=== PATIENT | female | born 1965 | race African-American/Black ===

== ENCOUNTER 2025-05-27 14:03 | Emergency (ER) | payer OTHER, SELFPAY ==
[2025-05-27] VITALS (13 sets, daily range): BP systolic 120–157; BP diastolic 84–103; PULSE 55–78; RESP 12–18; TEMP 36.6; O2SAT 95–100
--- NOTE | ~2025-05-27 | XR_ITS ---
XR chest 1V portable Ordering provider: Lilly Fenton PA-C History: 60 years Female with . shortness of breath . Comparison: None. FINDINGS: MEDIASTINUM: The cardiac silhouette is not enlarged. LUNGS: No infiltrates, effusions or pneumothorax. Granuloma seen in the left upper lobe area. OTHER: No free air under the diaphragm. IMPRESSION: No acute cardiopulmonary pathology. Reviewed, dictated and finalized at location A.
--- NOTE | ~2025-05-27 | CT_ITS ---
CLINICAL INDICATION: Left lower quadrant abdominal pain COMPARISON: 12/14/2024. TECHNIQUE: Multiple contiguous axial images of the abdomen and pelvis were performed following the ad ministration of with 100 mL Omnipaque-350 intravenous contrast The dose-length product (DLP) was 451.60 mGy-cm. Automated exposure control and iterative reconstruction technique were employed. FINDINGS/OBSERVATIONS: Visualized lower thorax: IMPRESSION: Small bilateral pleural effusions, with adjacent compressive atelectasis, unchanged from prior. The heart is of normal size, without pericardial effusion. Small hiatal hernia is present. Liver: The liver demonstrates homogeneous enhancement and is not enlarged. Gallbladder and biliary system: The gallbladder is only minimally distended, and otherwise unremarkable. Pancreas: The pancreas enhances homogeneously without ductal dilatation. Spleen: Punctate calcifications identified within the splenic parenchyma, suggesting prior granulomat ous disease. The remainder of the spleen otherwise enhances homogeneously and is not enlarged. Kidneys: The bilateral kidneys enhance symmetrically without hydronephrosis or renal calculi. Adrenal glands: Unremarkable. Gastrointestinal tract: Colonic diverticulosis without surrounding inflammatory change. Appendix: The appendix is not definitively visualized. However, no pericecal inflammatory change is identified suggest the presence of acute appendicitis. Vasculature: Retroaortic left renal vein is identified. The inferior vena cava is appropriately distended. No significant calcifications within the abdominal aorta. Lymph nodes: No pathologically enlarged or morphologically suspicious lymph nodes within the retroperitoneum or at the root of the mesentery. Pelvic structures: The bladder is only minimally distended, and otherwise unremarkable. The uterus is either surgically absent or markedly atrophic. Body wall and musculoskeletal: Small fat-containing umbilical hernia. Posterior fixation of the lower lumbar spine. Age-appropriate degenerative disease within the remainder of the lumbar spine. IMPRESSION: No findings within the left lower quadrant to account for patient's abdominal pain. Innumerable nonacute findings, as detailed above. Reviewed, dictated and finalized at location A. IMPRESSION: Small bilateral pleural effusions, with adjacent compressive atelectasis, uncha nged from prior. The heart is of normal size, without pericardial effusion. Small hiatal hernia is present. Liver: The liver demonstrates homogeneous enhancement and is not enlarged. Gallbladder and biliary system: The gallbladder is only minimally distended, and otherwise unremarkable. Pancreas: The pancreas enhances homogeneously without ductal dilatation. Spleen: Punctate calcifications identified within the splenic parenchyma, sugge sting prior granulomatous disease. The remainder of the spleen otherwise enhances homogeneously and is not enlarge d. Kidneys: The bilateral kidneys enhance symmetrically without hydronephrosis or renal lewis culi. Adrenal glands: Unremarkable. Gastrointestinal tract: Colonic diverticulosis without surrounding inflammatory change. Appendix: The appendix is not definitively visualized. However, no pericecal inflammatory change is identified suggest the presence of acute appendicitis. Vasculature: Retroaortic left renal vein is identified. The inferior vena cava is appropriately distended. No significant calcifications within the abdominal aorta. Lymph nodes: No pathologically enlarged or morphologically suspicious lymph nodes within the retroperitoneum or at the root of the mesentery. Pelvic structures: The bladder is only minimally distended, and otherwise unremarkable. The uterus is either surgically absent or markedly atrophic. Body wall and musculoskeletal: Small fat-containing umbilical hernia. Posterior fixation of the lower lumbar spine. Age-appropriate degenerative disease within the remainder of the lumbar spine. IMPRESSION: No findings within the left lower quadrant to account for patient's abdominal p ain. Innumerable nonacute findings, as detailed above.
--- OUTSIDE RECORDS SUMMARY | 2025-05-27 14:14 | XMS_ITS | Encounter Summary ---
Author Organization [facility] Address [address] [place] [address] Care Team Providers Care Plumbing Mechanic Name Role Phone Sheeba Bocanegra DO Primary Care Provider [phone] Vannesa Mckenzie DO Unavailable [phone] Reason for Visit * Reason Onset Date Comments Appointment 04/22/2021 was unable to le ave a message regarding an appt. on 04/29/[address] Ayoub because pt. was not accepting calls at this time Encounter Details Date Type Department Care Team (Late st Contact Info) Description 04/22[facility]2021 [facility] [address] [place] [address] Maggie Paredes Appointment (was unable to leave a message regarding an appt. on 04/29/[address] Ayoub because pt. was not accepting calls at this time) Social History Tobacco Use Types Packs/Day Years Used Date Smoking Tobacco: Never Assessed Comments Unknown Sex and Gender Information Value Date Recorded Sex Assigned at Not on file Legal Sex Female 7:50 AM CDT Gender Identity Not on file Sexual Orientation Not on file documented as of this encounter Plan of Treatment Not on file documented as of this encounter Visit Diagnoses Not on filedocumented in this encounter Care Teams Plumbing Mechanic Relationship Specialty Start Date End Date Sheeba Bocanegra DO [address] [place] [id number] PCP - General 06/10/21 Vannesa Mckenzie DO [address] [facility] [place] [id number] PCP - Attributed-[place] [employer] [place] 05/22/22 12/06/23 documented as of this encounter
--- OUTSIDE RECORDS SUMMARY | 2025-05-27 14:14 | XMS_ITS | Data Portability ---
Author Organization [facility], Main Office Address [address] [place] [address] Assessment No assessment recorded. Plan of Treatment Reminders Order Date Submit Date Provider Last Modified By Organization Details Last Modified Time Details Appointments None record ed. Lab None record ed. Referral None record ed. Procedures None record ed. Surgeries None record ed. Imaging None record ed. Medication Orders None record ed. Patient TargetsNo targets recorded. Patient InstructionsNo instructions recorded. Reason for Referral None Reported. Results Created Date Observation Date Name Description Value Unit Range Abnormal Flag Note LastModifiedBy Organization Detail LastModifiedTime 09/29/20 22 XR, knee No observ ation record ed. [id number] Not Available 01/18/2023 01:50:13 Result Notes None recorded. Problems Name Problem SNOMED Code Status Onset Date Resolution Date Notes Provider Name and Address Organization Details Recorded Time Pain of left knee joint [id number] Active 2021 Not Available [facility] 3 01:49:01 Problem Notes None recorded. Medical Equipment None Reported. Allergies Allergen ID Allergen Name Allergen Category Reaction Reaction Severity Criticality Documentation Date Start Date Code Code System Note Provider Name and Address Organization Details Recorded Time 35971 aspirin medicatio n Not available Not available Not available 01/18/2023 1191 RxNorm Not Available [facility] 3 01:50:03 Medications Name Sig Start Date Stop Date Status Note LastModified by Organization Details LastModified Time metformin 500 mg tablet 10/06 completed Not Available Not Available Not Available carvedilol 25 mg tablet TAKE 1 TABLET BY MOUTH TWICE A DAY FOR BLOOD PRESSURE AND HEART active Not Available Not Available No t Available carvedilol 6.25 mg tablet 10/06 completed Not Available Not Available Not Available gabapentin 600 mg tablet TAKE ONE TABLET BY MOUTH EVERY NIGHT AT BEDTIME FOR PAIN MANAGEMEN T active Not Available Not Available No t Available tizanidine 4 mg tablet TAKE 1 TABLET BY MOUTH TWICE DAILY NEEDED active Not Available Not Available No t Available fluconazole 150 mg tablet 10/06 completed Not Available Not Available Not Available acyclovir 400 mg tablet TAKE 1 TABLET BY MOUTH TWO TIMES DAILY active Not Available Not Available No t Available morphine ER 30 mg tablet,exte nded release TAKE 1 TABLET BY MOUTH TWICE DAILY NEEDED active Not Available Not Available No t Available tramadol 50 mg tablet TAKE ONE TABLET BY MOUTH EVERY 8 HOURS NEEDED FOR PAIN active Not Available Not Available No t Available spironolact one 25 mg tablet TAKE ONE TABLET BY MOUTH EVERY DAY FOR FLUID RETENTION active Not Available Not Available No t Available carvedilol 3.125 mg tablet 10/06 completed Not Available Not Available Not Available levothyroxi ne 75 mcg tablet TAKE 1 TABLET(S) EVERY DAY BY ORAL ROUTE DIRECTED FOR THYROID active Not Available Not Available No t Available meloxicam 7.5 mg tablet TAKE 1 TABLET BY MOUTH TWICE DAILY NEEDED 10/06 completed Not Available Not Available Not Available methocarbam ol 750 mg tablet TAKE 1 TABLET BY MOUTH EVERY 8 TO 12 HOURS NEEDED 10/06 completed Not Available Not Available Not Available oxycodone-a cetaminophe n 10 mg-325 mg tablet TAKE 1 TABLET BY MOUTH EVERY 8 TO 12 HOURS NEEDED FOR CHRONIC PAIN 10/06 completed Not Available Not Available Not Available lisinopril 10 mg tablet TAKE 1 TABLET BY MOUTH EVERY DAY 10/06 completed Not Available Not Available Not Available valsartan 320 mg tablet TAKE 1 TABLET BY MOUTH BY MOUTH EVERY DAY FOR BLOOD PRESSURE active Not Available Not Available No t Available estradiol 0.5 mg tablet TAKE 1 TABLET BY MOUTH DAILY active Not Available Not Available No t Available clobetasol 0.05 % topical ointment 10/06 completed Not Available Not Available Not Available oxycodone-a cetaminophe n 7.5 mg-325 mg tablet TK 1 T PO BID PRN P 10/06 completed Not Available Not Available Not Available cefdinir 300 mg capsule TAKE ONE CAPSULE BY MOUTH EVERY TWELVE HOURS active Not Available Not Available No t Available losartan 100 mg tablet 10/06 completed Not Available Not Available Not Available naproxen 500 mg tablet TAKE ONE TABLET BY MOUTH TWICE DAILY active Not Available Not Available No t Available Premarin 0.625 mg/gram vaginal cream insert 0.5 grams vaginally twice a WEEK active Not Available Not Available No t Available rosuvastati n 10 mg tablet TAKE 1 TABLET BY MOUTH ONCE A DAY active Not Available Not Available No t Available morphine ER 30 mg capsule,ext ended release pellets TAKE 1 CAPSULE PO UP TO BID PRN 10/06 completed Not Available Not Available Not Available FeroSul 325 mg (65 mg iron) tablet TAKE 1 TABLET BY MOUTH DAILY FOR IRON REPLACEME NT active Not Available Not Available No t Available oxycodone 10 mg tablet TAKE 1 TABLET BY MOUTH TWICE DAILY NEEDED active Not Available Not Available No t Available diclofenac 1 % topical gel Apply by topical route for 13 days. active Not Available Not Available No t Available Farxiga 10 mg tablet TAKE ONE TABLET BY MOUTH EVERY DAY FOR DIABETES active Not Available Not Available No t Available Vitals Date Recorded Body mass index (BMI) Body height Body weight Provider Name and Address Organization Details Last Updated DateTime 10/06/2022 26.6 kg/m2 160.02 cm 13789.86 g Not Available [facility] 01/18/2023 01:48:40 Social History None recorded. Functional Status Question Answer Note LastModified by Organizat ion Details LastModified Time What is your level of alcohol consumption? None [id number] Information not available 01/18/2023 Mental Status None recorded. Family History Relationship Description Onset Age of this Age Resolved Age Notes LastModified by Organization Details LastModified Time Mother Hypertensive disorder [id number] Not available 01/18/2023 01:48:19 Mother Diabetes mellitus [id number] Not available 01/18/2023 01:48:19 Mother Kidney disease [id number] Not available 01/18/2023 01:48:20 Medical History No medical history recorded. Gynecological HistoryNo gynecological history recorded. Obstetrics History GPAL:G 0 P 0 0 0 0 Past Encounters Encounter ID Performer Location Encounter Start Date Encounter Closed Date Diagnosis/Indication Diagnosis SNOMED-CT Code Diagnosis ICD10 Code Diagnosis Note [id number] Willy Nieto MD [facility] [address] [place] [phone] 10/06/2022 00:00:00 10/06/2022 10:46:58 Health Concerns Section Related Observation LastModified by Organization Detai ls LastModified Time None Recorded Concern Status LastModified by Organization Details LastModified Time None Recorded Advance Directives Directive None Recorded Payers Insurance Date Sequence Insurance Name Policy Number Policy Clark Covered Member ID Clark Member ID Guarantor Name 10/01/2024 1 [facility] ON OR AFTER 05/19/21 (MEDICAID REPLACEMENT - HMO) Cassandra Mathis [id number] Cassandra Mathis 10/01/2024 2 [place] [facility] Cassandra Mathis [id number] Cassandra Mathis 10/07/2024 1 [facility] ON OR AFTER 05/19/21 (MEDICAID REPLACEMENT - HMO) Cassandra Mathis [id number] Cassandra Mathis OBGyn Episode No OBEpisode recorded.
--- OUTSIDE RECORDS SUMMARY | 2025-05-27 14:14 | XMS_ITS | Data Portability ---
Author Organization [facility] Address [address] [place] [address] Care Team Providers Care Balloon Sander Name Role Phone STEFANIA TYSON Pain Management RAMAN KUNZ Brewer Helper [phone] [facility] Rn Team Leader Assessment Encounter Date Assessment Date Assessment LastModified by Organization Details LastModified Time 09/12/2024 09/12/2024 Her pain appears MSK oajao Not available 09/12/2024 18:29:53 09/22/2024 09/22/2024 incomplete vitals collected for this Pt by support team. Unable to fully assess. [email or web address] Not available 09/24/2024 09:18:33 10/08/2024 10/08/2024 Her pain appears MSK, the plain xray(KUB) does not explain her pain oajao Not available 10/08/2024 22:02:08 12/18/2024 12/18/2024 It appears that she is having syncopal episodes, some of which were orthostatic. 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 [email or web address] Not available 12/19/2024 09:00:34 Plan of Treatment Reminders Order Date Submit Date Provider Last Modified By Organization Details Last Modified Time Details Appointments ANY 15 2024 08:15A M Flor Auguste MD Not available Not available Not available NEW PATIENT 30 2024 10:00A M Becca Devries MD Not available Not available Not available Lab HbA1c (hemoglob in A1c), blood 2024 025 [email or web address] [facility], [address], [place], [address], 05/20/2025 10:54:14 lipid panel, serum 2024 025 rocio [facility], [address], [place], [address], 05/20/2025 10:54:15 urinalysi s complete, reflex culture 2023 024 RAMEZ Coe, [address], [place], [address], 10/09/2024 08:28:16 TSH, ultra-sen sitive, serum 2023 024 RAMEZ Coe, [address], [place], [address], 09/16/2024 11:23:41 urinalysi s macro (dipstick ) panel, urine 2023 024 RAMEZ Coe, [address], [place], [address], 09/16/2024 06:17:32 CMP, serum or plasma 2023 024 RAMEZ Coe, [address], [place], [address], 09/16/2024 06:17:29 CBC w/ auto diff 2023 024 RAMEZ Coe, [address], [place], [address], 09/16/2024 06:17:33 lipid panel, serum 2023 024 RAMEZ Coe, [address], [place], [address], 09/16/2024 06:17:28 vitamin D, 25-hydrox y, total, serum 2023 024 [facility], [address], [place], [address], 09/16/2024 11:23:42 magnesium , serum or plasma 2023 024 [facility], [address], [place], [address], 09/16/2024 06:17:31 CK (creatine kinase), total, serum 2023 [facility], [address], [place], [address], 09/16/2024 11:23:38 HbA1c (hemoglob in A1c), blood 2023 024 [facility], [address], [place], [address], 09/16/2024 11:23:39 microalbu min/creat inine, mass ratio, urine 2023 024 [facility], [address], [place], [address], 09/16/2024 11:23:37 Referral cardiolog ist referral 2024 025 [facility], [address], [address], [place], [address], 05/20/2025 11:18:16 gastroent erologist referral 2023 024 [facility], [address], [place], [address], 05/01/2025 04:16:15 diabetic ophthalmo logy referral 2023 024 [facility], [address], [place], [address], 03/19/2025 13:50:06 Procedures None recorded. Surgeries None recorded. Imaging XR, pelvis - L. sided pelvic pain 2023 [facility] (Radiology), [address] [place], [address], 11/20/2024 14:19:58 XR, lumbosacr al spine - Worsening left sided LBP 2023 [facility] (Radiology), [address] [place], [address], 11/20/2024 14:23:46 MAMMO, screening , digital, bilateral 2023 024 [facility] ([facility]), [address] [place], [address], 12/03/2024 12:16:17 XR, knee - Fall/pain 2023 024 [facility] ([facility]), [address] [place], [address], 09/15/2024 12:56:55 XR, kidney + ureter + bladder - L. sided pain, history of chronic back pain 2023 024 [facility] ([facility]), [address] [place], [address], 09/15/2024 13:12:56 Medication Orders docusate sodium 100 mg capsule 2024 025 [facility], [address] [place] [address], [id number], 01/21/2025 12:58:11 Premarin 0.625 mg/gram vaginal cream 2023 024 [facility], [address] [place] [address], [id number], 09/22/2024 16:19:44 paroxetin e 10 mg tablet 2023 024 [facility], [address] [place] [address], [id number], 09/22/2024 16:19:43 Premarin 0.625 mg/gram vaginal cream 2022 023 [facility], [address] [place] [address], [id number], 09/12/2024 16:27:05 paroxetin e 10 mg tablet 2022 023 [facility], [address] [place] [address], [id number], 10/30/2023 13:44:59 fluconazo le 150 mg tablet 2022 023 [facility], [address] [place] [address], [id number], 10/08/2024 15:44:19 Patient TargetsNo targets recorded. 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 Has some vasomotor symptoms; was on paroxetine for a long time and ran out of refills. Has been using vaginal cream for lubrication PRN. No issues with libido. O: BP 110/83. A/P: Well woman - Mammo already ordered. History of hysterectomy for benign reasons, no need for cervical cancer screening. VSM - Refill paroxetine, Premarin cream. I did not personally see or examine the patient with the resident. I was physically present to provide indirect supervision through entire encounter. Plan discussed with resident as documented in my brief note above. Maxine Aguirre MD [email or web address] Not available 09/22/2024 15:09:23 10/08/2024 [id number] influenza (flu) vaccine: care instructions oajao Not available 10/08/2024 15:17:39 frequent urination: care instructions oajao Not available 10/08/2024 15:58:05 Urinalysis Ophthalmology as referred Xrays GI for a screening colonoscopy Follow up in 7-8 weeks and PRN oajao Not available 10/08/2024 16:06:24 12/18/2024 [id number] constipation: ca re instructions oajao Not available 12/18/2024 15:52:39 learning about type 2 diabetes oajao Not available 12/18/2024 15:50:45 type 2 diabetes: care instructions oajao Not available 12/18/2024 15:50:45 fatigue: care instructions oajao Not available 12/18/2024 16:06:40 Ophthalmology an d GI (Colonoscopy) as referred. Labs in January, Cardiology follow up ER reports from her most recent visits to [facility] in [place]. Follow up in 8 weeks oajao Not available 12/18/2024 16:12:54 Reason for Referral Diabetic Ophthalmology Refer ral for Type 2 diabetes mellitus without complication HBA1C 5.9% Referring Physician: Flor Auguste, Internal Medicine, Encounter Date: 09/12/2024 Concrete Saw Operator Referral for Screening for malignant neoplasm of colon Screening colonoscopy, please Referring Physician: Flor Auguste, Internal Medicine, Encounter Date: 10/08/2024 Guest Services Director Referral for Hi story of syncope Recurrent Syncope Referring Physician: Oladele Ajao, Internal Medicine, Encounter Date: 12/18/2024 Results Created Date Observation Date Name Description Value Unit Range Abnormal Flag Note LastModifiedBy Organization Detail LastModifiedTime 08/17/2008/18/2023 T4F T4,free (direct) 0.72 NG/dL 0.82-1 .77 below low normal Not Available [facility] ([facility]) [address] [place], [address], 08/18/2023 08:22:21 08/17/20 23 08/18/2023 ALT (SGPT ) ALT (SGPT) 23 IU/L 0-32 Not Available [facility] ([facility]) [address] [place], [address], 08/18/2023 08:22:21 08/17/20 23 08/18/2023 AST (SGOT ) AST (SGOT) 25 IU/L 0-40 Not Available [facility] ([facility]) [address] [place], [address], 08/18/2023 08:22:20 08/17/20 23 08/18/2023 TSH RFX ON ABNOR MAL TO FREE T4 TSH 9.920 uIU/m L 0.450- 4.500 above high normal Not Available [facility] ([facility]) [address] [place], [address], 08/18/2023 08:22:20 08/17/20 23 08/18/2023 LIPID PANEL cholesterol, total 175 mg/dL 100-19 9 Not Available [facility] ([facility]) [address] [place], [address], 08/18/2023 08:22:19 08/17/20 23 08/18/2023 LIPID PANEL triglyceride s 125 mg/dL 0-149 Not Available [facility] ([facility]) [address] [place], [address], 08/18/2023 08:22:19 08/17/20 23 08/18/2023 LIPID PANEL HDL cholesterol 52 mg/dL >39 Not Available [facility] ([facility]) [address] [facility] [place], [address], 08/18/2023 08:22:19 08/17/20 23 08/18/2023 LIPID PANEL VLDL cholesterol lewis 22 mg/dL 5-40 Not Available [facility] ([facility]) [address] [facility] [place], [address], 08/18/2023 08:22:19 08/17/20 23 08/18/2023 LIPID PANEL LDL chol calc ([facility]) 101 mg/dL 0-99 above high normal Not Available [facility] ([facility]) [address] [facility] [place], [address], 08/18/2023 08:22:19 08/20/20 23 08/21/2023 H PYLOR I BREAT H TEST H pylori breath test NEGATI VE negati ve Not Available [facility] ([facility]) [address] [place], [address], 08/21/2023 15:10:27 08/20/20 23 08/21/2023 ALKAL INE PHOSP HATAS E alkaline phosphatase 72 IU/L 44-121 Not Available [facility] ([facility]) [address] [place], [address], 08/21/2023 15:10:28 08/20/20 23 08/21/2023 AST (SGOT ) AST (SGOT) 25 IU/L 0-40 Not Available [facility] ([facility]) [address] [place], [address], 08/21/2023 15:10:29 08/20/20 23 08/21/2023 LIPAS E lipase 34 U/L 14-72 Not Available [facility] ([facility]) [address] [place], [address], 08/21/2023 15:10:30 08/20/20 23 08/21/2023 ALT (SGPT ) ALT (SGPT) 27 IU/L 0-32 Not Available [facility] ([facility]) [address] [facility], [place], [address], 08/21/2023 15:10:31 08/20/2008/21/2023 HGB+H CT hemoglobin 11.8 g/dL 11.1-1 5.9 Not Available [facility] ([facility]) [address] [facility], [place], [address], 08/21/2023 15:10:31 08/20/2008/21/2023 HGB+H CT hematocrit 37.3 % 34.0-4 6.6 Not Available [facility] ([facility]) [address] [facility], [place], [address], 08/21/2023 15:10:31 05/21/20 24 05/22/2024 TSH RFX ON ABNOR MAL TO FREE T4 TSH 1.840 uIU/m L 0.450- 4.500 Not Available [facility] ([facility]) [address] [facility], [place], [address], 05/22/2024 09:13:32 09/15/20 24 09/15/2024 LIPID PANEL cholesterol, total 194 mg/dL 100-19 9 Not Available [facility] [address] [place], [address], 09/16/2024 06:17:28 09/15/20 24 09/15/2024 LIPID PANEL triglyceride s 144 mg/dL 0-149 Not Available [facility] Department [address] [place], [address], 09/16/2024 06:17:28 09/15/20 24 09/15/2024 LIPID PANEL HDL cholesterol 50 mg/dL 40-999 Not Available [facility] Department [address] [place], [address], 09/16/2024 06:17:28 09/15/2009/15/2024 LIPID PANEL VLDL cholesterol lewis 29 mg/dL 5-40 Not Available [facility] Department [address] [place] [address], [address], 09/16/2024 06:17:28 09/15/2009/15/2024 LIPID PANEL LDL chol calc (nih) 136 mg/dL 0-99 above high normal Not Available [facility] Department [address] [place] [address], [address], 09/16/2024 06:17:28 09/15/2009/15/2024 COMP. METAB OLIC PANEL (14) glucose 93 mg/dL 70-99 Not Available [facility] Department [address] [place] [address], [address], 09/16/2024 06:17:29 09/15/2009/15/2024 COMP. METAB OLIC PANEL (14) BUN 23 mg/dL 8-27 Not Available [facility] Department [address] [place] [address], [address], 09/16/2024 06:17:29 09/15/2009/15/2024 COMP. METAB OLIC PANEL (14) creatinine 1.27 mg/dL 0.76-1 .27 Not Available [facility] Department [address] [place] [address], [address], 09/16/2024 06:17:29 09/15/2009/15/2024 COMP. METAB OLIC PANEL (14) eGFR 48 >=60 below low normal Units for eGFR value s are mL/mi n/1.7 3 The eGFR Calcu latio n has not been valid ated for patie nts under the age of 18. If test resul ts are displ ayed for a patie nt under the age of 18, disre nereyda that value . Not Available [facility] Department [address] [place] [address], [address], 09/16/2024 06:17:29 09/15/2009/15/2024 COMP. METAB OLIC PANEL (14) BUN/creatini ne ratio 18 09-15 Not Available [facility] Department [address] [place] [address], [address], 09/16/2024 06:17:29 09/15/2009/15/2024 COMP. METAB OLIC PANEL (14) sodium 140 mmol/ L 134-14 4 Not Available [facility] Department [address] [place] [address], [address], 09/16/2024 06:17:29 09/15/2009/15/2024 COMP. METAB OLIC PANEL (14) potassium 4.9 mmol/ L 3.5-5. 2 Not Available [facility] Department [address] [place] [address], [address], 09/16/2024 06:17:29 09/15/20 24 09/15/2024 COMP. METAB OLIC PANEL (14) chloride 103 mmol/ L 96-106 Not Available [facility] [address] [place] [address], [address], 09/16/2024 06:17:29 09/15/20 24 09/15/2024 COMP. METAB OLIC PANEL (14) carbon dioxide, total 26 mmol/ L Not Available [facility] Department [address] [place] [address], [address], 09/16/2024 06:17:29 09/15/2009/15/2024 COMP. METAB OLIC PANEL (14) calcium 10.3 mg/dL 8.7-10 .3 Not Available [facility] Department [address] [place] [address], [address], 09/16/2024 06:17:29 09/15/20 24 09/15/2024 COMP. METAB OLIC PANEL (14) protein, total 7.9 g/dL 6.0-8. 5 Not Available [facility] Department [address] [place], [address], 09/16/2024 06:17:29 09/15/20 24 09/15/2024 COMP. METAB OLIC PANEL (14) albumin 4.6 g/dL 3.8-4. 8 Not Available [facility] Department [address] [place], [address], 09/16/2024 06:17:29 09/15/20 24 09/15/2024 COMP. METAB OLIC PANEL (14) globulin, total 3.3 g/dL 1.5-4. 5 Not Available [facility] Department [address] [place], [address], 09/16/2024 06:17:29 09/15/2009/15/2024 COMP. METAB OLIC PANEL (14) A/G ratio 1.4 1.2-2. 2 Not Available [facility] Department [address] [place], [address], 09/16/2024 06:17:29 09/15/2009/15/2024 COMP. METAB OLIC PANEL (14) bilirubin, total 0.3 mg/dL 0.0-1. 2 Not Available [facility] Department [address] [place], [address], 09/16/2024 06:17:29 09/15/2009/15/2024 COMP. METAB OLIC PANEL (14) alkaline phosphatase 89 IU/L 44-121 Not Available [facility] Department [address] [place], [address], 09/16/2024 06:17:29 09/15/20 24 09/15/2024 COMP. METAB OLIC PANEL (14) AST (SGOT) 23 IU/L 0-40 Not Available [facility] Department [address] [place], [address], 09/16/2024 06:17:29 09/15/2009/15/2024 COMP. METAB OLIC PANEL (14) ALT (SGPT) 23 IU/L 0-32 Not Available [facility] Department [address] [place], [address], 09/16/2024 06:17:29 09/15/2009/15/2024 MICRO SCOPI C EXAMI NATIO N WBC 0-2 Not Available [facility] Department [address] [place], [address], 09/16/2024 06:17:30 09/15/2009/15/2024 MICRO SCOPI C EXAMI NATIO N RBC 0-2 Not Available [facility] Department [address] [place], [address], 09/16/2024 06:17:30 09/15/2009/15/2024 MICRO SCOPI C EXAMI NATIO N epithelial cells (non renal) COMMEN T OCCAS IONAL Not Available [facility] Department [address] [place], [address], 09/16/2024 06:17:30 09/15/2009/15/2024 MICRO SCOPI C EXAMI NATIO N mucus threads TRACE Not Available [facility] Department [address] [place], [address], 09/16/2024 06:17:30 09/15/2009/15/2024 MICRO SCOPI C EXAMI NATIO N bacteria 2+ abnormal Not Available [facility] Department [address] [place], [address], 09/16/2024 06:17:30 09/15/2009/15/2024 MAGNE SIUM magnesium 2.0 mg/L 1.6-2. 3 Not Available [facility] Department [address] [place], [address], 09/16/2024 06:17:31 09/15/2009/15/2024 URINA LYSIS , ROUTI NE specific gravity SEE BELOW: 1.005- 1.030 abnormal >=1.0 30 Not Available [facility] Department [address] [facility], [place], [address], 09/16/2024 06:17:32 09/15/2009/15/2024 URINA LYSIS , ROUTI NE pH 6.0 5.0-7. 0 Not Available [facility] Department [address] [place], [address], 09/16/2024 06:17:32 09/15/2009/15/2024 URINA LYSIS , ROUTI NE urine-color YELLOW yellow Not Available [facility] Department [address] [place], [address], 09/16/2024 06:17:32 09/15/2009/15/2024 URINA LYSIS , ROUTI NE appearance SEE BELOW: clear abnormal SL CLOUD Y Not Available [facility] Department [address] [place], [address], 09/16/2024 06:17:32 09/15/2009/15/2024 URINA LYSIS , ROUTI NE WBC esterase COMMEN T negati ve NEGAT KEN Not Available [facility] Department [address] [place], [address], 09/16/2024 06:17:32 09/15/2009/15/2024 URINA LYSIS , ROUTI NE protein COMMEN T NEGAT KEN Not Available [facility] Department [address] [place], [address], 09/16/2024 06:17:32 09/15/2009/15/2024 URINA LYSIS , ROUTI NE glucose 250 mg/dL negati ve abnormal Not Available [facility] Department [address] [place], [address], 09/16/2024 06:17:32 09/15/2009/15/2024 URINA LYSIS , ROUTI NE ketones COMMEN T negati ve NEGAT KEN Not Available [facility] Department [address] [place], [address], 09/16/2024 06:17:32 09/15/2009/15/2024 URINA LYSIS , ROUTI NE occult blood COMMEN T NEGAT KEN Not Available [facility] Department [address] [place], [address], 09/16/2024 06:17:32 09/15/2009/15/2024 URINA LYSIS , ROUTI NE bilirubin COMMEN T NEGAT KEN Not Available [facility] Department [address] [place], [address], 09/16/2024 06:17:32 09/15/2009/15/2024 URINA LYSIS , ROUTI NE urobilinogen ,semi-qn 0.2 eu/dL 0.2-1. 0 Not Available [facility] Department [address] [place], [address], 09/16/2024 06:17:32 09/15/2009/15/2024 URINA LYSIS , ROUTI NE nitrite, urine COMMEN T negati ve NEGAT KEN Not Available [facility] Department [address] [place], [address], 09/16/2024 06:17:32 09/15/2009/15/2024 CBC WITH DIFFE RENTI AL/PL ATELE T WBC 2.8 x10e3 /uL 3.4-10 .8 below low normal Not Available [facility] Department [address] [place], [address], 09/16/2024 06:17:33 09/15/2009/15/2024 CBC WITH DIFFE RENTI AL/PL ATELE T RBC 4.57 x10e6 /uL 3.77-5 .28 Not Available [facility] Department [address] [place], [address], 09/16/2024 06:17:33 09/15/2009/15/2024 CBC WITH DIFFE RENTI AL/PL ATELE T hemoglobin 12.1 g/dL 11.1-1 5.9 Not Available [facility] Department [address] [place], [address], 09/16/2024 06:17:33 09/15/2009/15/2024 CBC WITH DIFFE RENTI AL/PL ATELE T hematocrit 40.1 % 34.0-4 6.6 Not Available [facility] Department [address] [place], [address], 09/16/2024 06:17:33 09/15/2009/15/2024 CBC WITH DIFFE RENTI AL/PL ATELE T MCV 88 fL 79-97 Not Available [facility] Department [address] [place], [address], 09/16/2024 06:17:33 09/15/2009/15/2024 CBC WITH DIFFE RENTI AL/PL ATELE T MCH 26.5 pg 26.6-3 3.0 below low normal Not Available [facility] Department [address] [place], [address], 09/16/2024 06:17:33 09/15/2009/15/2024 CBC WITH DIFFE RENTI AL/PL ATELE T MCHC 30.2 g/dL 31.5-3 5.7 below low normal Not Available [facility] Department [address] [place], [address], 09/16/2024 06:17:33 09/15/2009/15/2024 CBC WITH DIFFE RENTI AL/PL ATELE T RDW 15.3 % 11.5-1 4.5 above high normal Not Available [facility] Department [address] [place], [address], 09/16/2024 06:17:33 09/15/2009/15/2024 CBC WITH DIFFE RENTI AL/PL ATELE T platelets 247 x10e3 /uL 150-45 0 Not Available [facility] Department [address] [place], [address], 09/16/2024 06:17:33 09/15/2009/15/2024 CBC WITH DIFFE RENTI AL/PL ATELE T neutrophils - Test not perfo rmed Not Available [facility] Department [address] [place], [address], 09/16/2024 06:17:33 09/15/2009/15/2024 CBC WITH DIFFE RENTI AL/PL ATELE T lymphs - Test not perfo rmed Not Available [facility] Department [address] [place], [address], 09/16/2024 06:17:33 09/15/2009/15/2024 CBC WITH DIFFE RENTI AL/PL ATELE T monocytes - Test not perfo rmed Not Available [facility] Department [address] [place], [address], 09/16/2024 06:17:33 09/15/2009/15/2024 CBC WITH DIFFE RENTI AL/PL ATELE T eos - Test not perfo rmed Not Available [facility] Department [address] [place], [address], 09/16/2024 06:17:33 09/15/2009/15/2024 CBC WITH DIFFE RENTI AL/PL ATELE T lymphs (absolute) - Test not perfo rmed Not Available [facility] Department [address] [place], [address], 09/16/2024 06:17:33 09/15/2009/15/2024 CBC WITH DIFFE RENTI AL/PL ATELE T eos (absolute) - Test not perfo rmed Not Available [facility] [address] [place], [address], 09/16/2024 06:17:33 09/15/20 24 09/15/2024 CBC WITH DIFFE RENTI AL/PL ATELE T baso (absolute) - Test not perfo rmed Not Available [facility] Department [address] [place], [address], 09/16/2024 06:17:33 09/15/20 24 09/16/2024 ALBUM IN/CR EAT RATIO , RANDO M UR creatinine, urine 157.5 mg/dL notest ab. Not Available [facility] ([facility]) [address] [place], [address], 09/16/2024 11:23:37 09/15/2009/16/2024 ALBUM IN/CR EAT RATIO , RANDO M UR albumin, urine 11.4 ug/mL notest ab. Not Available [facility] ([facility]) [address] [place], [address], 09/16/2024 11:23:37 09/15/20 24 09/16/2024 ALBUM IN/CR EAT RATIO , RANDO M UR alb/creat ratio 7 mg/g_ creat 0-29 Aga l: 0 - 29 Moder ately incre ased: 30 - 300 Sever fletcher incre ased: >300 Not Available [facility] [facility]) [address] [place], [address], 09/16/2024 11:23:37 09/15/2009/16/2024 CREAT INE KINAS E,TOT AL creatine kinase,total 212 U/L 32-182 above high normal Not Available [facility] ([facility]) [address] [place], [address], 09/16/2024 11:23:38 09/15/20 24 09/16/2024 HEMOG LOBIN A1C hemoglobin A1C 6.1 % 4.8-5. 6 above high normal Predi abete s: 5.7 - 6.4 Diabe zaki: >6.4 Glyce miriam contr ol for adult s with diabe zaki: <7.0 Not Available [facility] ([facility]) [address] [facility], [place], [address], 09/16/2024 11:23:39 09/15/2009/16/2024 TSH TSH 2.730 uIU/m L 0.450- 4.500 Not Available [facility] ([facility]) [address] [facility], [place], [address], 09/16/2024 11:23:41 09/15/2009/16/2024 VITAM IN D, 25-HY DROXY vitamin D, 25-hydroxy 75.9 NG/mL 30.0-1 00.0 Vitam in D defic iency has been defin ed by the Insti tute of Medic ine and an Endoc rine Socie ty pract ice guide line as a level of serum 25-OH vitam in D less than 20 ng/mL (1,2) . The Endoc rine Socie ty went on to furth er defin e vitam in D insuf ficie ncy as a level betwe en 21 and 29 ng/mL (2). 1. IOM (Inst itute of Medic ine). 2009. Dieta ry refer ence julianne es for calci um and D. Evens chan [place]: The [facility] Press . 2. Dom cheek [place], Nieves gerardo [place], Isis off-F errar i STEPHENS, et al. Evalu ation , treat ment, and preve ntion of vitam in D defic iency : an Endoc rine Socie ty clini lewis pract ice guide line. JCEM. 2010; 96(7) :1911 -30. Not Available [facility] ([facility]) [address] [facility], [place], [address], 09/16/2024 11:23:42 10/08/20 24 10/09/2024 MICRO SCOPI C EXAMI NATIO N WBC NONE SEEN /hpf 0-5 Not Available [facility] ([facility]) [address] [facility], [place], [address], 10/09/2024 08:28:15 10/08/20 24 10/09/2024 MICRO SCOPI C EXAMI NATIO N RBC NONE SEEN /hpf 0-2 Not Available [facility] ([facility]) [address] [facility], [place], [address], 10/09/2024 08:28:15 10/08/20 24 10/09/2024 MICRO SCOPI C EXAMI NATIO N epithelial cells (non renal) >10 /hpf 0-10 abnormal Not Available [facility] ([facility]) [address] [facility], [place], [address], 10/09/2024 08:28:15 10/08/20 24 10/09/2024 MICRO SCOPI C EXAMI NATIO N casts NONE SEEN /lpf nonese en Not Available [facility] ([facility]) [address] [facility], [place], [address], 10/09/2024 08:28:15 10/08/20 24 10/09/2024 MICRO SCOPI C EXAMI NATIO N bacteria FEW nonese en/few Not Available [facility] ([facility]) [address] [facility], [place], [address], 10/09/2024 08:28:15 10/08/20 24 10/09/2024 UA/M W/RFL X CULTU RE, ROUTI NE specific gravity 1.018 1.005- 1.030 Not Available [facility] ([facility]) [address] [facility], [place], [address], 10/09/2024 08:28:16 10/08/20 24 10/09/2024 UA/M W/RFL X CULTU RE, ROUTI NE pH 7.0 5.0-7. 5 Not Available [facility] ([facility]) [address] [facility], [place], [address], 10/09/2024 08:28:16 10/08/20 24 10/09/2024 UA/M W/RFL X CULTU RE, ROUTI NE urine-color YELLOW yellow Not Available [facility] ([facility]) [address] [facility], [place], [address], 10/09/2024 08:28:16 10/08/20 24 10/09/2024 UA/M W/RFL X CULTU RE, ROUTI NE appearance CLEAR clear Not Available [facility] ([facility]) [address] [place], [address], 10/09/2024 08:28:16 10/08/20 24 10/09/2024 UA/M W/RFL X CULTU RE, ROUTI NE WBC esterase NEGATI VE negati ve Not Available [facility] ([facility]) [address] [facility], [place], [address], 10/09/2024 08:28:16 10/08/20 24 10/09/2024 UA/M W/RFL X CULTU RE, ROUTI NE protein NEGATI VE negati ve/tra ce Not Available [facility] ([facility]) [address] [place], [address], 10/09/2024 08:28:16 10/08/20 24 10/09/2024 UA/M W/RFL X CULTU RE, ROUTI NE glucose 3+ negati ve abnormal Not Available [facility] ([facility]) [address] [place], [address], 10/09/2024 08:28:16 10/08/20 24 10/09/2024 UA/M W/RFL X CULTU RE, ROUTI NE ketones NEGATI VE negati ve Not Available [facility] ([facility]) [address] [place], [address], 10/09/2024 08:28:16 10/08/20 24 10/09/2024 UA/M W/RFL X CULTU RE, ROUTI NE occult blood NEGATI VE negati ve Not Available [facility] ([facility]) [address] [facility], [place], [address], 10/09/2024 08:28:16 10/08/20 24 10/09/2024 UA/M W/RFL X CULTU RE, ROUTI NE bilirubin NEGATI VE negati ve Not Available [facility] ([facility]) [address] [facility], [place], [address], 10/09/2024 08:28:16 10/08/20 24 10/09/2024 UA/M W/RFL X CULTU RE, ROUTI NE urobilinogen ,semi-qn 0.2 mg/dL 0.2-1. 0 Not Available [facility] ([facility]) [address] [facility], [place], [address], 10/09/2024 08:28:16 10/08/20 24 10/09/2024 UA/M W/RFL X CULTU RE, ROUTI NE nitrite, urine NEGATI VE negati ve Not Available [facility] ([facility]) [address] [facility], [place], [address], 10/09/2024 08:28:16 10/08/20 24 10/09/2024 UA/M W/RFL X CULTU RE, ROUTI NE microscopic examination COMMEN T Micro scopi c follo ws if indic ated. Not Available [facility] ([facility]) [address] [facility], [place], [address], 10/09/2024 08:28:16 10/08/20 24 10/09/2024 UA/M W/RFL X CULTU RE, ROUTI NE microscopic examination SEE BELOW: Micro scopi c was indic ated and was perfo rmed. Not Available [facility] ([facility]) [address] [facility], [place], [address], 10/09/2024 08:28:16 10/08/20 24 10/09/2024 UA/M W/RFL X CULTU RE, ROUTI NE urinalysis reflex COMMEN T This speci men will not refle x to a Urine Cultu re. Not Available [facility] ([facility]) [address] [facility], [place], [address], 10/09/2024 08:28:16 08/27/20 23 08/27/2023 US, abdom en, compl ete No observ ation record ed. [facility] [address] [place], [address], 09/12/2024 16:29:07 02/28/20 24 02/27/2024 US, kidne y No observ ation record ed. [facility] [address], [place], [address], 09/12/2024 16:29:07 03/24/20 24 03/24/2024 trans -thor acic echoc ardio gram (TTE) (PROC ) No observ ation record ed. [facility] [address], [place], [address], 09/12/2024 16:29:06 09/15/20 24 09/15/2024 XR, knee No observ ation record ed. [facility] [address] [place], [address], 10/08/2024 15:46:07 09/15/20 24 09/15/2024 XR, kidne y + urete r + bladd er No observ ation record ed. [facility] [address] [place], [address], 10/08/2024 15:46:07 11/20/19 25 11/20/2024 XR, pelvi s No observ ation record ed. [facility] [address] [place], [address], 12/19/2024 12:53:36 11/20/19 25 11/20/2024 XR, lumbo sacra l spine No observ ation record ed. [facility] [address] [place], [address], 12/19/2024 12:53:37 12/03/19 25 12/02/2024 MAMMO , scree zenia, digit al, bilat eral No observ ation record ed. [facility] [address] [place], [address], 12/18/2024 15:48:33 Result Notes None recorded. Problems Name Problem SNOMED Code Status Onset Date Resolution Date Notes Provider Name and Address Organization Details Recorded Time History of total hysterecto my 722660544 Active 2019 Not Available [facility] 3 06:09:19 Acquired hypothyroi dism 874688031 Active 2019 Not Available [facility] 3 06:09:19 Gastroesop hageal reflux disease 994660589 Active 2019 Not Available [facility] 3 06:09:19 Prediabete s 246394294 Active 2019 Not Available [facility] 3 06:09:19 Genital herpes simplex 61297108 Active 2019 Not Available [facility] 3 06:09:19 Influenza vaccinatio n declined 730053079 Active 2019 Not Available [facility] 3 06:09:19 Tetanus vaccinatio n declined by patient 774109823 Active 2019 Not Available [facility] 3 06:09:19 Chronic back pain 858033632 Active 2019 Not Available [facility] 3 06:09:19 Long-term current use of opiate analgesic drug 1654195731113 08 Active 2019 Not Available [facility] 3 06:09:19 Leukopenia 03189114 Active 2020 Not Available [facility] 3 06:09:19 Disorder of lipid metabolism 953963537 Active 2020 Not Available [facility] 3 06:09:19 Pulmonary emphysema 70471048 Active 2021 Not Available [facility] 3 06:09:19 Benign essential hypertensi on 2227535 Active 2021 Not Available [facility] 3 06:09:19 Degenerati on of lumbar interverte bral disc 71316157 Active 2021 Not Available [facility] 3 06:09:19 Dextroscol iosis 5226202145875 01 Active 2021 Not Available [facility] 3 06:09:19 Degenerati on of cervical interverte bral disc 79840992 Active 2021 Not Available [facility] 3 06:09:19 Sprain of left knee 5334509479786 9108 Active Not Available [facility] 3 06:09:19 Derangemen t of left knee 3086243315704 9108 Active Not Available [facility] 3 06:09:19 Impaired fasting glycemia 240175422 Active 2022 Not Available [facility] 3 06:09:19 Malaise and fatigue 610591824 Active 2022 Not Available [facility] 3 06:09:19 Serum creatinine above reference range 516507088 Active 2022 Not Available [facility] 3 06:09:19 Problem Notes None recorded. Procedures Surgical History Date Name Laterality Status Provider Name and Address Organization Details Recorded Time 024 Diabetic Foot Exam completed Flor Auguste MD Attn: Accounting,[address] [place], [address], [facility] 10/08/2024 15:57:07 023 Date of Last Mammogram completed MAGO GILES Attn: Accounting,[address] [facility] [place], [address], [place] - [facility] 09/04/2023 14:59:21 023 parathyroidectomy completed Flor Auguste MD Attn: Accounting,[address] [facility], [place], [address], [place] [facility] 03/12/2023 14:05:57 021 biopsy completed Julia Olivares [place] - [facility] 08/10/2021 10:27:47 021 EGD completed Flor Auguste MD Attn: Accounting,[address] [facility], [place], [address], [place] [facility] 02/04/2021 08:47:11 021 Vulvar Biopsy completed David Ford [place] - [facility] 01/16/2021 14:39:59 020 Date of Last Pap Smear completed MAGO GILES Attn: Accounting,[address] [facility], [place], [address], [place] [facility] 01/24/2023 16:10:55 019 Back Surgery completed Chantel Stone [place] - [facility] 09/16/2020 14:13:09 990 Total hysterectomy completed MAGO MCKEON Attn: Accounting,[address] [facility], [place], [address], [place] [facility] 08/08/2023 11:53:09 procedure on urinary bladder completed Flor Auguste MD Attn: Accounting,[address] [facility], [place], [address], [place] [facility] 10/28/2020 15:26:07 Imaging Results None recorded. Procedure Notes None recorded. Medical Equipment None Reported. Allergies Allergen ID Allergen Name Allergen Category Reaction Reaction Severity Criticality Documentation Date Start Date Code Code System Note Provider Name and Address Organization Details Recorded Time 430240 aspirin medicatio n Not available Not available Not available 09/16/2020 1191 RxNorm Other react ions and sever ities : 'Adve rse react ion to subst ance' . Flor Auguste MD Attn: Mis nguyen,[address], [place], [address], [place] - [facility] 2 14:20:19 974241 diltiazem medicatio n other mild Not available 10/24/2021 3443 RxNorm Leuko penantwan Flor Auguste MD Attn: Mis g,[address], [place], [address], [place] - [facility] 1 15:46:28 Medications Name Sig Start Date Stop Date Status Note LastModified by Organization Details LastModified Time losartan 50 mg tablet TAKE 1 TABLET BY MOUTH EVERY DAY FOR BLOOD PRESSURE active On Valsarta n Not Available Not Available Not Available cyclobenz aprine 10 mg tablet TAKE 1 TABLET BY MOUTH EVERY 8 HOURS NEEDED 05/27 completed Not Available Not Available Not Available metformin 500 mg tablet Take 1 tablet every day by oral route as directed for 90 days. 09/18 completed Not Available Not Available Not Available carvedilo l 25 mg tablet TAKE ONE TABLET BY MOUTH TWICE DAILY EVERY MORNING & EVENING FOR BLOOD PRESSURE & HEART active Not Available Not Available No t Available carvedilo l 6.25 mg tablet Take 1 tablet twice a day by oral route as directed for 30 days. 09/18 completed Not Available Not Available Not Available gabapenti n 600 mg tablet TAKE ONE TABLET BY MOUTH EVERY NIGHT AT BEDTIME FOR PAIN MANAGEME NT active Not Available Not Available No t Available doxycycli ne hyclate 100 mg capsule 06/27 completed Not Available Not Available Not Available paroxetin e 10 mg tablet TAKE ONE TABLET BY MOUTH EVERY NIGHT AT BEDTIME active Not Available Not Available No t Available loperamid e 2 mg capsule TAKE 1 CAPSULE BY MOUTH EVERY 6 HOURS NEEDED FOR LOOSE STOOLS 12/16 completed Not Available Not Available Not Available nifedipin e ER 90 mg tablet,ex tended release TAKE 1 TABLET BY MOUTH EVERY DAY FOR BLOOD PRESSURE active She is not on Nifedipi ne Not Available Not Available Not Available tizanidin e 4 mg tablet TAKE 1 TABLET BY MOUTH TWICE DAILY NEEDED active Not Available Not Available No t Available fluconazo le 150 mg tablet TAKE ONE TABLET BY MOUTH A SINGLE DOSE 10/08 completed PRN Not Available Not Available Not Available benzonata te 200 mg capsule 09/12 completed Not Available Not Available Not Available sucralfat e 1 gram tablet Take 1 tablet 4 times a day by oral route as directed for 10 days. 01/11 completed Not Available Not Available Not Available acyclovir 400 mg tablet TAKE ONE TABLET BY MOUTH TWICE DAILY EVERY MORNING & EVENING FOR INFECTIO N active Not Available Not Available No t Available morphine ER 30 mg tablet,ex tended release TAKE ONE TABLET BY MOUTH TWICE DAILY NEEDED active Not Available Not Available No t Available sulfameth oxazole 800 mg-trimet hoprim 160 mg tablet Take 1 tablet every 12 hours by oral route as directed for 3 days. 05/27 completed Not Available Not Available Not Available tramadol 50 mg tablet TAKE ONE TABLET BY MOUTH EVERY 8 HOURS NEEDED FOR PAIN 10/19 completed Not Available Not Available Not Available amitripty line 50 mg tablet Take 1 tablet every day by oral route at bedtime for 30 days. 09/18 completed Not Available Not Available Not Available acetamino phen 500 mg tablet 07/05 completed Not Available Not Available Not Available spironola ctone 25 mg tablet TAKE ONE TABLET BY MOUTH EVERY MORNING FOR FLUID RETENTIO N active Not Available Not Available No t Available carvedilo l 3.125 mg tablet Take 1 tablet twice a day by oral route as directed for 30 days. 12/26 completed Not Available Not Available Not Available levothyro xine 75 mcg tablet TAKE ONE TABLET BY MOUTH EVERY MORNING 30 MINUTES BEFORE BREAKFAS T FOR THYROID 2024 active Not Available Not Available Not Avai lable meloxicam 7.5 mg tablet TAKE 1 TABLET BY MOUTH TWICE DAILY NEEDED 09/18 completed Not Available Not Available Not Available famotidin e 20 mg tablet TAKE 1 TABLET VIA NASOGAST HAMZAH TUBE 2 TIMES PER DAY 08/30 completed Not Available Not Available Not Available methocarb kandace 750 mg tablet TAKE 1 TABLET BY MOUTH EVERY 8 TO 12 HOURS NEEDED 05/27 completed Not Available Not Available Not Available oxycodone -acetamin ophen 10 mg-325 mg tablet TAKE 1 TABLET BY MOUTH EVERY 8-12 HOURS NEEDED 08/30 completed Not Available Not Available Not Available Triple Antibioti c 3.5 mg-400 unit-5,00 0 unit/gram topical ointment 06/27 completed Not Available Not Available Not Available doxycycli ne monohydra te 100 mg capsule TAKE ONE TABLET BY MOUTH TWICE DAILY FOR 7 DAYS 06/27 completed Not Available Not Available Not Available levothyro xine 50 mcg tablet TAKE ONE TABLET BY MOUTH EVERY DAY FOR THYROID (STOP taking 75mcg TABLET) 08/20 completed Increase Levothyr oxine to 75 mcg Not Available Not Available Not Available pantopraz ole 40 mg tablet,de layed release TAKE ONE TABLET BY MOUTH EVERY DAY FOR STOMACH 09/12 completed Not Available Not Available Not Available lisinopri l 10 mg tablet Take 1 tablet every day by oral route in the morning for 30 days. 12/26 completed Ms Mathis needs to discuss Lisinopr il with the cardiolo gist as she is on Losartan Not Available Not Available Not Available lidocaine 5 % topical patch APPLY 1 PATCH TO SKIN ONCE DAILY NEEDED REMOVE AFTER 12 HOURS active Not Available Not Available No t Available valsartan 320 mg tablet TAKE ONE TABLET BY MOUTH EVERY NIGHT AT BEDTIME FOR BLOOD PRESSURE active Not Available Not Available No t Available docusate sodium 100 mg capsule TAKE ONE CAPSULE BY MOUTH EVERY MORNING NEEDED FOR CONSTIPA TION active Not Available Not Available No t Available gabapenti n 300 mg capsule TAKE ONE CAPSULE BY MOUTH THREE TIMES A DAY, MORNING, MIDDAY AND BEDTIME FOR PAIN MANAGEME NT active Not Available Not Available No t Available omeprazol e 20 mg capsule,d elayed release Take 1 capsule every day by oral route as needed for 30 days. 11/25 completed Not Available Not Available Not Available diclofena c sodium 75 mg tablet,de layed release TAKE 1 TABLET BY MOUTH TWICE DAILY 05/27 completed Not Available Not Available Not Available morphine ER 15 mg tablet,ex tended release TAKE 1 TABLET BY MOUTH EVERY 12 HOURS 05/27 completed Not Available Not Available Not Available mupirocin 2 % topical ointment APPLY TO THE AFFECTED AREA(S) of SKIN TWICE DAILY 06/27 completed Not Available Not Available Not Available estradiol 0.5 mg tablet TAKE 1 TABLET BY MOUTH DAILY 06/27 completed Not Available Not Available Not Available ergocalci ferol (vitamin D2) 1,250 mcg (50,000 unit) capsule TAKE ONE CAPSULE BY MOUTH EVERY WEEK FOR VITAMIN DEFICIAN CY active Not Available Not Available No t Available clobetaso l 0.05 % topical ointment APPLY A THIN LAYER TO THE AFFECTED AREA(S) BY TOPICAL ROUTE 2-3 TIMES PER WEEK AT BEDTIME 01/24 completed Not Available Not Available Not Available oxycodone -acetamin ophen 7.5 mg-325 mg tablet Take 1 tablet twice a day by oral route as needed. 11/25 completed Prescrib ed by pain manageme nt Not Available Not Available Not Available Morphine Sulfate CR 30 mg tablet,ex tended release Take 1 tablet every 12 hours by oral route as needed. 10/19 completed Duplicat e Not Available Not Available Not Available ondansetr on 4 mg disintegr ating tablet DISSOLVE 1 TABLET ON THE TONGUE EVERY 8 HOURS NEEDED FOR NAUSEA OR VOMITING active Not Available Not Available No t Available cefdinir 300 mg capsule TAKE ONE CAPSULE BY MOUTH EVERY TWELVE HOURS 11/07 completed Not Available Not Available Not Available losartan 100 mg tablet Take 1 tablet every day by oral route in the evening for 90 days. 09/18 completed Not Available Not Available Not Available calcitrio l 0.25 mcg capsule TAKE ONE CAPSULE BY MOUTH EVERY DAY active Not Available Not Available No t Available naproxen 500 mg tablet TAKE ONE TABLET BY MOUTH TWICE DAILY active Not Available Not Available No t Available amoxicill in 875 mg-potass ium clavulana te 125 mg tablet TAKE 1 TABLET BY MOUTH TWICE DAILY FOR 7 DAYS 09/12 completed Not Available Not Available Not Available Premarin 0.625 mg/gram vaginal cream INSERT 0.5g VAGINALL Y TWICE A WEEK active Not Available Not Available No t Available cholestyr amine (with sugar) 4 gram oral powder Take 1 scoop twice a day by oral route as directed for 30 days. 09/18 completed Not Available Not Available Not Available rosuvasta tin 10 mg tablet TAKE ONE TABLET BY MOUTH EVERY NIGHT AT BEDTIME TO LOWER CHOLESTE ROL active Not Available Not Available No t Available rosuvasta tin 20 mg tablet Take 1 tablet every day by oral route at bedtime for 90 days. 09/12 completed Not Available Not Available Not Available magnesium OTC (One po daily) 09/18 completed Not Available Not Available Not Available morphine ER 30 mg capsule,e xtended release pellets TAKE 1 CAPSULE PO UP TO BID PRN 10/28 completed Not Available Not Available Not Available FeroSul 325 mg (65 mg iron) tablet TAKE ONE TABLET BY MOUTH EVERY MORNING FOR IRON REPLACEM ENT active Not Available Not Available No t Available oxycodone 10 mg tablet TAKE ONE TABLET BY MOUTH TWICE DAILY NEEDED active Not Available Not Available No t Available diclofena c 1 % topical gel USE 1 GRAM TWICE DAILY NEEDED active Not Available Not Available No t Available Farxiga 10 mg tablet TAKE ONE TABLET BY MOUTH EVERY DAY FOR DIABETES active Not Available Not Available No t Available Vitals Date Recorded Body height Body mass index (BMI) Body weight Respiratory rate Heart rate Oxygen saturation Oxygen saturation in Arterial blood by Pulse oximetry Systolic And Diastolic Provider Name and Address Organization Details Last Updated DateTime 5 160.02 cm 27.8 kg/m2 16225 g 16 /min 62 /min 96 % 96 % 130/86 mm[Hg] Chantel Stone MA [facility] 5 15:18:18 Date Recorded Body height Body mass index (BMI) Body weight Systolic And Diastolic Provider Name and Address Organization Details Last Updated DateTime 08/29/2023 160.02 cm 28.9 kg/m2 87214.56 g 118/70 mm[Hg] Ilda Gregg MA [facility] 08/29/2023 09:45:29 Date Recorded Body height Body mass index (BMI) Body weight Respiratory rate Heart rate Oxygen saturation Oxygen saturation in Arterial blood by Pulse oximetry Systolic And Diastolic Provider Name and Address Organization Details Last Updated DateTime 4 160.02 cm 29.4 kg/m2 66729.3 3 g 16 /min 76 /min 96 % 96 % 104/76 mm[Hg] Chantel Stone MA [facility] 4 16:05:35 Date Recorded Body height Body mass index (BMI) Body weight Heart rate Oxygen saturation Oxygen saturation in Arterial blood by Pulse oximetry Systolic And Diastolic Provider Name and Address Organization Details Last Updated DateTime 4 160.02 cm 28.7 kg/m2 90100.9 6 g 75 /min 95 % 95 % 110/83 mm[Hg] Axel NEREYDA Stein [place] - [facility] 4 14:51:11 Date Recorded Body height Body mass index (BMI) Body weight Heart rate Oxygen saturation Oxygen saturation in Arterial blood by Pulse oximetry Respiratory rate Systolic And Diastolic Provider Name and Address Organization Details Last Updated DateTime 4 160.02 cm 28.4 kg/m2 92091.5 8 g 64 /min 97 % 97 % 18 /min 130/86 mm[Hg] Chantel Stone [place] [facility] 4 15:15:09 Social History Question Answer Notes LastModified by Organizat ion Details LastModified Time Tobacco Smoking Status Former Smoker quit 30 yrs ago Chantel Stone MA [facility] 09/16/2020 14:14:51 Do You Have An Advance Directive? No Information not available 12/16/2021 Are You Blind Or Do You Have Difficulty Seeing? No Information not available 01/11/2021 What Is Your Level Of Caffeine Consumption? Moderate Coffee Information not available 09/16/2020 How Much Tobacco Do You Chew? None Information not available 09/16/2020 In The 14 Days Before Symptom Onset, Have You Had Close Contact With A Laboratory-confir med COVID-19 While That Case Was Ill? No Information not available 10/24/2022 In The 14 Days Before Symptom Onset, Have You Had Close Contact With A Person Who Is Under Investigation For COVID-19 While That Person Was Ill? No Information not available 10/24/2022 Have You Been To An Area Known To Be High Risk For COVID-19? No Information not available 09/16/2020 Are You Deaf Or Do You Have Serious Difficulty Hearing? No Information not available 01/11/2021 What Type Of Diet Are You Following? REGULAR Information not available 09/16/2020 Are There Any Guns Present In Your Home? No Information not available 09/16/2020 Hard Of Hearing Or Deaf In One Or Both Ears? No Information not available 09/16/2020 Legally Blind In One Or Both Eyes? No Information no t available 09/16/2020 Marital Status Single Informatio n not available 09/16/2020 What Was The Date Of Your Most Recent Tobacco Screening? 12/18/2024 Information not available 12/18/2024 What Is Your Current Pack Years? 20-29pazoe wiley [email or web address] Information not available 06/13/2022 Performs Monthly Self-breast Exam? No Information no t available 09/16/2020 What Is Your Relationship Status? Single Information not available 12/16/2021 Seat Belts Used Routinely Yes Information not available 09/16/2020 Are You Sexually Active? Yes Information not available 01/14/2021 Smoke Alarm In Home Yes Information not available 09/16/2020 Do You Have Smoke And Carbon Monoxide Detectors In Your Home? Yes Information not available 01/11/2021 Are You Passively Exposed To Smoke? No Information no t available 12/16/2021 How Much Tobacco Do You Smoke? 0.5 PPD Information not available 12/16/2021 Has Tobacco Cessation Counseling Been Provided? No Information not available 05/27/2021 On What Date Was Tobacco Cessation Counseling Provided? 08/29/2023 [email or web address] Information not available 08/29/2023 How Many Years Have You Smoked Tobacco? 20 Information not available 12/16/2021 Sex: Unknown Functional Status Question Answer Note LastModified by Organizat ion Details LastModified Time Do you use any illicit or recreational drugs? No Information not available 12/16/2021 Do you or have you ever used any other forms of tobacco or nicotine? No Information not available 12/16/2021 What is your level of alcohol consumption? None Information not available 09/16/2020 Do you or have you ever used smokeless tobacco? Never used smokeless tobacco oajao Information not available 09/16/2020 Are you currently employed? No Information not available 12/16/2021 Are you able to care for yourself? Yes Information not available 01/11/2021 What is your occupation? disabled Information not available 12/16/2021 Do you or have you ever used e-cigarettes or vape? Never used electronic cigarettes Information not available 09/16/2020 What is your exercise level? None Information not available 01/28/2021 Mental Status None recorded. Family History Relationship Description Onset Age of this Age Resolved Age Notes LastModified by Organization Details LastModified Time Mother Hypertensive disorder [email or web address] Not available 2019 14:14:17 Mother Heart disease [email or web address] Not available 2019 14:14:24 Mother Kidney disease [email or web address] Not available 2021 17:08:06 Brother Heart disease hdoverma Not available 2019 14:14:27 Brother Myocardial infarction hdoverma Not available 09/16 14:14:42 Father Heart disease hdoverma Not available 2019 14:14:31 Father Harmful pattern of use of alcohol [email or web address] Not available 2021 17:07:21 Father Diabetes mellitus [email or web address] Not available 2021 17:07:34 Sister Hypertensive disorder [email or web address] Not available 2021 17:07:49 Sister Malignant tumor of breast 61 Diagno sed in March 2023 [email or web address] Not available 08/29/2023 09:49:30 Medical History Condition Response Coronary Artery Disease N Other N High Blood Pressure Y Atrial Fibrillation N Kidney or Bladder Problems N Thyroid Problems Y GI Problems N Depression N COPD N Blood Clots N Skin Problems N Anemia Y Heart Attack ([place]) N Anxiety Disorder N Diabetes N Muscle, Joint, or Bone Problems N Seizures/Epilepsy N Acid Reflux (GERD) N Cancer N Stroke N Asthma N Allergies N High Cholesterol N Hepatitis N Liver Disease N Headaches N Heart Failure N Osteoporosis N Gynecological History Statement/Question Response Menses Monthly N If Post Menopausal, Age at Menopause 25 Date of Last Pap Smear 11/15/2020 Current Control Method Hysterectom y Date of Last Mammogram 04/02/2023 Date of LMP Obstetrics History GPAL:G 2 P 2 0 0 2 Type Value Multiple Births 0 Full Term 2 Induced 0 Spontaneous 0 Premature 0 Living 2 Ectopics 0 Total 2 Immunizations Vaccine Type Date Status Note Provider Nam e and Address Organization Details Recorded Time SARS-COV-2 (COVID-19) vaccine, UNSPECIFIED 1 completed Not Available [facility] 08/28/2023 06:09:21 COVID-19, mRNA, LNP-S, PF, 30 mcg/0.3 mL dose 1 completed Not Available [facility] 08/28/2023 06:09:21 Pneumococcal conjugate PCV20, polysaccharide [id number] conjugate, adjuvant, PF 4 completed Chantel Stone MA null, [place] - [facility] 12/18/2024 15:16:53 COVID-19, mRNA, LNP-S, PF, 30 mcg/0.3 mL dose 1 completed NEREYDA [place], [place] - [facility] 11/17/2021 08:55:26 Influenza, split virus, trivalent, preservative 4 completed NEREYDA [place], [place] - [facility] 10/09/2024 11:06:39 Past Encounters Encounter ID Performer Location Encounter Start Date Encounter Closed Date Diagnosis/Indication Diagnosis SNOMED-CT Code Diagnosis ICD10 Code Diagnosis Note [id number] MD Shital Isbell (Adult Med) [address] [place] [address] [id number] 0 09/16/2020 13:49:14 09/16/2020 15:04:26 Influenza vaccination declined 270577947 Z28.21 Tetanus va ccination declined by patient 416076010 Z28.21 General ex amination of patient 940876923 Z00.01 Chronic back pain 710120 002 G89.29 History of total hysterectomy 796047978 Z90.710 Further RF by PIPER HELPER Insomnia 120684679 G47.0 0 Genital he rpes simplex 23140271 A60.9 Acquired hypothyroidism 627454296 E03.9 Benign hypertension 1072 5009 I10 Prediabetes 323164333 R7 3.03 Gastroesop hageal reflux disease 865043221 K21.9 She alternates between Omeprazole and Ranitidine Screening for malignant neoplasm of breast 202332861 Z12.39 Long-term current use of opiate analgesic drug 0836472862 63970 Z79.996 [id number] MD Shital Isbell (Adult Med) [address] [place] [address] [phone] 0 10/28/2020 14:36:11 10/28/2020 15:46:06 Abdominal pain 69168825 R10.9 She has a history of possible H. pylori gastritis and she is not getting any better with Omeprazole LabsCT scanPantop razole/Suc ralfate Influenza vaccination declined 137520118 Z28.21 Chronic back pain 154521 002 G89.29 [id number] MD Shital Isbell (Adult Med) [address] [place] [address] [phone] 0 11/25/2020 08:11:06 11/26/2020 09:37:30 Leukopenia 42095557 D72.819 Meds?, recheck Abdominal pain 34397975 R10.9 She has a history of possible H. pylori gastritis when she was in [place] and she was not getting any better with Omeprazole Labs were within normal limitsCT scan as previously orderedPan toprazole is not helpingSuc ralfateGI to seeBailey apparently had a normal colonoscop y when she was in [place] Disorder o f lipid metabolism 519731583 E78.9 Discussed in detail, if she cannot tolerate Crestor, we may have to try a bile acid sequestran t Chronic back pain 393998 002 G89.29 She cannot afford the cost of the office visit with Dr Abdi he has asked to be referred to someone in her network [id number] MAGO GILES (3D SPECIALIST) [address] [place] [address] [phone] 0 01/14/2021 14:29:15 01/17/2021 10:42:35 Gynecologic examination 78126448 Z01.419 Menopausal syndrome 1237 56102 N95.9 Was on estradiol and premarin [place] [facility] [place] Estradiol renewed by PCP. Will monitor. Lichen scl erosus of female genitalia 562559509 N90.4 Vulvar pain/irrit ation x1 month. Atrophy and hypopigmen hilda patches noted bilaterall y along labia, perineum, and perianal area. Findings consistent with lichen sclerosus. Shave biopsy taken to confirm diagnosis. Patient tolerated procedure well. Counseled patient on condition. Will start clobetasol x 3 months. Reassured the patient that her symptoms were not caused from the oral diet pill she was taking. Plan to follow up with pathology results. Venereal d isease screening 883406648 Z11.3 Nuswab to rule out infection as a contributo r to pt's symptoms. 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 819 Meds? (Acyclovir ) vs genetic.Un fortunatel y there is no CBC in her old records from [facility] [id number] MAGO GILES (3D SPECIALIST) [address] [place] [address] [id number] 0 01/25/2021 08:01:57 01/27/2021 17:15:36 Genital lichen sclerosus 627664717 L90.0 Pathology report from 01/14/21 confirms dx of lichen sclerosus. Counseled pt on condition and treatment. Clobetasol previously prescribed . Pt states she has received the cream but has not started it yet. Advised applying nightly x 3 months. RTC in 3 months. Menopausal syndrome 1237 97314 N95.9 BARBRA with BSO due to abnormal bleeding at age 25. She was prescribed estradiol and premarin form her former provider in [place] and would like to continue them. Renewed today. Will reassess at RTC. [id number] MD Shital Isbell (Adult Med) [address] [place] [address] [id number] 0 01/28/2021 08:00:38 01/31/2021 10:53:01 Leukopenia 41294940 D72.819 Meds? (Acyclovir , Amitriptyl ine) vs genetic.Un fortunatel y there is no CBC in her old records from [facility] repeat WBC drawn on 01/14/2021 from a different lab is better at 4 (3.4-10.8) but her absolute neutrophil s are still low. Urinary tr act infectious disease 96921165 N39.0 Disorder o f lipid metabolism 564207025 E78.9 Discussed in detail, she will be starting her Crestor. [id number] MD Shital Isbell (Adult Med) [address] [place] [address] [phone] 0 05/27/2021 12:44:06 05/31/2021 11:30:01 Disorder of lipid metabolism 424184720 E78.9 Continue CrestorRes tart Cholestyra mine Prediabetes 911939315 R7 3.03 Acquired hypothyroidism 993336973 E03.9 Medication monitoring 39 1204873 Z51.81 Leukopenia 48608155 D72. 819 [facility]en [facility] and a BM Bx. is schedueld Chronic back pain 492304 002 G89.29 She cannot afford the cost of the office visit with Dr Abdi he has asked to be referred to someone else in her network [id number] MAGO GILES (3D SPECIALIST) [address] [place] [address] [phone] 0 08/10/2021 10:17:26 08/10/2021 13:23:24 Genital lichen sclerosus 228773719 L90.0 Completed clobetasol nightly x 3 months with improvemen t in symptoms; however, irritation has returned over the past month. Will continue with maintenanc e therapy, advised nightly applicatio n 3 times per week x 12 weeks. RTC in 3 months in person visit to reassess. Atrophic vaginitis 68153 000 N95.2 Improved with Premarin cream, renewed today. Will reassess at RTC. [id number] MD Shital Isbell (Adult Med) [address] [place] [address] [phone] 0 08/30/2021 11:35:55 08/31/2021 10:25:26 Benign essential hypertension 6753924 I10 Her blood pressure control appears too rigid on Losartan and Nifedipine . It is also news to me that she has been skipping doses because of low blood pressure readings.I n view of her low blood pressure today, I have asked her to stop the Nifedipine and take the Losartan HS. She is to monitor her blood pressure and if it starts to trend upwards, the options are to either increase the dose of her Losartan or add a diuretic. Low blood pressure 89171 003 I95.9 In view of her low blood pressure today, I have asked her to stop the Nifedipine and take the Losartan HS. She is to monitor her blood pressure and if it starts to trend upwards, the options are to either increase the dose of her Losartan or add a diuretic. Renal insufficiency 7231 19527 N28.9 Discussed Genital he rpes simplex 61561678 A60.9 On Acyclovir which can cause leukopenia , Valacyclov ir also has bone marrow issues. Disorder o f lipid metabolism 157612503 E78.9 Continue Crestor and Cholestyra mineHer compliance is poor, I have discussed with her the need to be fully compliant to prevent CVS complicati ons. Leukopenia 52147196 D72. 819 Seen at [facility] and a BM Bx. was performed. DDX: Meds? (Acyclovir ?, although the patient states that she was told that it was the CCB), ethnic Screening for malignant neoplasm of colon 063045949 Z12.11 Still unable to get her [facility]oscop y report [facility] 519524688 G62 .9 Influenza vaccination declined 865346313 Z28.21 [id number] MD Shital Isbell (Adult Med) [address] [place] [address] 10/24/2021 14:22:38 10/25/2021 06:15:12 Benign essential hypertension 2108324 I10 Her blood pressure is uncontroll Iker will increase her Losartan to 100 mg po daily, side effects were discussedI t appears that Nifedipine had caused her leukopenia .She is to monitor her blood pressure and if it starts trending upwards, the options are to either add a diuretic or add another class, although in the past, HCTZ had resulted in LE cramps. Disorder o f lipid metabolism 857918761 E78.9 Continue Crestor and Cholestyra mineHer compliance is good although she can only tolerate it TIW. Renal insufficiency 7231 57660 N28.9 Discussed Cramp in lower limb 4499 37936 R25.2 Improvemen t noted with OTC Mg Influenza immunization advised 529111947 Z71.89 Impaired f asting glycemia 949169998 R73.01 Immunization advised 310 900975 Z71.9 [id number] MAGO MCKEON (Peds) [address] [place] [address] [phone] 0 11/17/2021 08:37:06 11/17/2021 10:46:40 Administration of SARS-CoV-2 mRNA vaccine 8185414661 Z23 [id number] MD Shital Isbell (Adult Med) [address] [place] [address] [phone] 0 11/28/2021 12:23:19 11/29/2021 10:20:49 Benign essential hypertension 8180682 I10 Her blood pressure is uncontroll ed on Losartan 100 mg po daily and apparently also on Lisinopril 10 mg. I have explained to her that this is only used in particular circumstan kerry. She feels that it was a member of the cardiology team that added on the Lisinopril on her discharge, rajinder bynum I do not have her D/C summary although a request has been made.I will add Carverdilo l 3.125 mg po BID, side effects were discussed. Cardiology follow up needed.Nif edipine had caused her leukopenia .She is to monitor her blood pressure.N ote, HCTZ had resulted in LE cramps.Con tinue Losartan, she state that she has no refills, she however does Acquired hypothyroidism 797271528 E03.9 Pulmonary emphysema 8743 [address] J43[address] scan [id number] MAGO GILES (3D SPECIALIST) [address] [place] [address] [phone] 0 12/16/2021 15:17:25 12/19/2021 14:04:34 Gynecologic examination 65604950 Z01.419 Cervical cancer screening: s/p hysterecto my, not indicated at this timeBreast cancer screening: Last mammogram 10/2020, BIRADS 1. Annual screening mammogram ordered. Discussed SBEColonos copy: Carlo woody, treat as neededDiet /exercise: Counseled regarding importance of physical activity, healthy diet and appropriat e calcium intake.RTC in 3 months Screening for malignant neoplasm of breast 618351170 Z12.31 Genital li becerra sclerosus 778726546 L90.0 Completed clobetasol nightly x 3 months with improvemen t in symptoms; however, irritation has returned over the past month. Will continue with maintenanc e therapy, advised nightly applicatio n 3 times per week x 12 weeks. Atrophic vaginitis 06426 000 N95.2 Discussed applying Premarin cream intravagin ally and at the introitus. Advised abstaining from intercours e for 1-2 weeks to allow the fissured area to heal. Pain in pelvis 16759281 R10.2 Referred patient for ultrasound for further assessment of pelvic pain. Candidiasis of vagina 72 117391 B37.3 Candidiasi s noted on exam, rx Diflucan. Essential hypertension 73653442 I10 BP elevated in office today. She is following with PCP and cardiology for uncontroll ed HTN and is scheduled for follow up with PCP (Kalyani) in 1 week. ER precaution s discussed. [id number] MD Shital Isbell (Adult Med) [address] [place] [address] [phone] 0 12/26/2021 12:32:47 12/26/2021 13:13:41 Benign essential hypertension 6688587 I10 Her blood pressure is uncontroll ed on Losartan 100 mg po daily and Carverdilo l 3.125 mg po BID.I will increase her Carvedilol to 6.25 mg po BID, side effects were discussed. Cardiology follow up needed.Nif edipine had caused her leukopenia .She is to monitor her blood pressure.N ote, HCTZ had resulted in LE cramps.Con tinue Losartan. Medication review done by doctor 023739654 Z76.89 [id number] MAGO GILES (3D SPECIALIST) [address] [place] [address] [phone] 0 06/13/2022 16:21:01 06/19/2022 17:02:21 Atrophic vaginitis 97903515 N95.2 Dryness well controlled . Continue Premarin vaginal cream. Menopausal syndrome 1237 09254 N95.9 BARBRA with BSO due to abnormal bleeding at age 25. Symptoms well controlled on ERT. Clearance from cardiology . BP controlled . Will continue as prescribed . RTC in 6 months. [id number] [facility] [address] [place] [address] [phone] 0 09/18/2022 10:48:39 09/19/2022 09:29:06 Degeneration of lumbar intervertebral disc 07646555 M51.36 Dextroscoliosis 91943911 01 20318 M41.9 Degenerati on of cervical intervertebral disc 49829023 M50.30 Immunization advised 310 851692 Z71.9 Influenza vaccination declined 330515960 Z28.21 Neuropathy 954673370 G62 .9 Cervical lymphadenopathy 750111344 R59.0 Acquired hypothyroidism 092154087 E03.9 Medication monitoring 39 8655952 Z51.81 Body mass index 25-29 - overweight 842855300 Z68.28 [id number] Flor Auguste MD [facility] (Adult Med) [address] [place] [address] 06972-013 0 10/19/2022 13:50:01 10/23/2022 11:06:00 Cervical lymphadenopathy 922848387 R59.0 CT scan 10/11/2022 ,( 10.5 mm nodule, R. Parotid and mass effect on the spinal cord).US 09/22/2022, enlarged LN above the right parotid gland.ENT referral initiated. Impairment of balance 38 4698377 R26.89 Immunization advised 310 436859 Z71.9 Imaging re sult abnormal 356156122 R93.89 She has mass effect on the spinal cord, this was noted on the CT scan done on 10/11/2022 as well as chronic neck pain. She needs a MRI to rule out spinal cord compressio n. Influenza vaccination declined 341001407 Z28.21 Renal insufficiency 7231 53603 N28.9 Discussed, nl US 01/26/2022N ephrology Impaired f asting glycemia 647967614 R73.01 Disorder o f lipid metabolism 090866556 E78.9 [id number] Enio Mckinney MD [facility] [address] [place] [address] [phone] 2 10/24/2022 14:04:42 10/30/2022 09:56:43 Mass of right parotid gland 1981897498 3376772 R22.1 treat for possible infected lymph node follow back in 2 weeks [id number] Enio Mckinney MD [facility] [address] [place] [address] 2 11/07/2022 14:44:39 11/29/2022 10:55:09 Mass of right parotid gland 7556269968 7269364 R22.1 treat for possible infected lymph node follow back in 2 weeks [id number] MD Shital Isbell (Adult Med) [address] [place] [address] [phone] 0 12/15/2022 12:10:59 12/15/2022 15:06:36 Overweight 010938372 E66.3 Degenerati on of cervical intervertebral disc 75703004 M50.30 The MRI of the cervical spine is significan t for, mild to moderate CSS, preforamin al stenosis and NFS Renal insufficiency 7231 84149 N28.9 Creatinine 1.51 ( 2), previously 1.29 ( 2)Renal as previously referredUS 01/26/2022 Impaired f asting glycemia 978512932 R73.01 Body mass index 25-29 - overweight 446630898 Z68.28 Pain of le ft knee joint 3777087889 16346 M25.562 She needs a MRI to R?O internal derangemen tOrthopedi cs Neuropathy 289414961 G62 .9 Screening for malignant neoplasm of breast 049112227 Z12.39 [id number] MAGO GILES (3D SPECIALIST) [address] [place] [address] [phone] 0 01/24/2023 15:56:29 01/25/2023 14:17:34 Gynecologic examination 26785484 Z01.419 Cervical cancer screening: s/p hysterecto my, Pap not indicated at this timeBreast cancer screening: Last mammogram March 2022, BIRADS 1.Colonosc opy: UTDDiet/ex ercise: Counseled regarding importance of physical activity, healthy diet and appropriat e calcium intake.RTC in 3 months Screening for malignant neoplasm of breast 199839682 Z12.31 Annual screening order provided Atrophic vaginitis 97712 000 N95.2 Dryness well controlled . Continue Premarin vaginal cream. Advised placing cream at perineum as well where burning/sy mptoms present. RTC if symptoms do not improve. Candidiasis of vagina 72 710501 B37.31 Keli discharge noted on exam, rx fluconazol e Lichen scl erosus of vulva 717910609 N90.4 Pt no longer experienci ng pruritis and there is concern for prolonged high potency steroid use which may be contributi ng to patient's symptoms of burning and pain with insertion during intercours e. We will discontinu e clobetasol and continue with premarin as below. [id number] MD Shital Isbell (Adult Med) [address] [place] [address] [phone] 0 06/27/2023 12:35:05 06/29/2023 10:34:20 Mass of right parotid gland 9290544372 2624169 R22.1 Adenoma Pain of le ft knee joint 6594961395 10501 M25.562 The MRI suggests a decrease in the joint space and a small effusion OV 12/15/2022S he needs a MRI to R/O internal derangemen tOrthopedi cs Acquired hypothyroidism 344735701 E03.9 Medication monitoring 39 9905138 Z51.81 Body mass index 25-29 - overweight 454248184 Z68.28 Postmenopausal state 764 40959 Z78.0 [id number] MD Shital Isbell (Adult Med) [address] [place] [address] 79374-873 0 07/05/2023 09:42:27 07/06/2023 16:15:26 Impaired fasting glycemia 993301516 R73.01 Discussed Serum crea tinine above reference range 105201340 R79.89 She has a follow up with her nephrologi st on 07/06/2023 Malaise and fatigue 2717 41349 R53.83 Unexplaine d by her labs Disorder o f lipid metabolism 564618258 E78.9 Dyspnea on exertion 6084 5006 R06.09 PFTS 2021 [id number] MD Shital Isbell (Adult Med) [address] [place] [address] [phone] 0 08/20/2023 11:31:16 08/21/2023 14:57:55 Glycosuria 76501917 R81 HBA1C 6.1 % on 06/27/2023 Abdominal pain 59786666 R10.9 DDX; PUD, Pancreatit is, GBLabsUSPa ntoprazole EGD revealed gastritis on 02/02/2021 he apparently had a colonoscop y at [facility] and she was told that she had polypsCT scan A&P 01/11/2021 splenic calcificat ionsGI if there is no improvemen t or obvious cause OV 10/28/2020 She has a history of possible H. pylori gastritis when she was in [place] and she was not getting any better with Omeprazole Labs were within normal limitsCT scan as previously orderedPan toprazole is not helpingSuc cadenceteRENEE to seeShkiera apparently had a normal colonoscop y when she was in [place] Medication review done by doctor 357781122 Z76.89 Rosuvastat in dose? Acquired hypothyroidism 877724483 E03.9 Increase Levothyrox ine to 75 mcgLabs 08/17/2023 TSH 9.920, Free T4 0.72 [id number] MAGO GILES (3D SPECIALIST) [address] [place] [address] 09677-254 0 08/29/2023 09:36:54 09/18/2023 09:17:13 Atrophic vaginitis 28377190 N95.2 Dryness well controlled with vaginal estrogen, continue Premarin vaginal cream. Menopausal flushing 1984 66087 N95.1 Discussed non hormonal options for hot flashes, pt agreeable to start paroxetine .-Counsele d the patient on use and side effects- lifestyle modificati ons discussed- RTC in 3-6 months, sooner if symptoms do not improve Candidiasis of vagina 72 255318 B37.31 -Keli discharge noted on exam, Rx fluconazol e Lichen scl erosus of vulva 741620790 N90.4 In remission, pt no longer experienci ng pruritis [id number] MD Shital Isbell (Adult Med) [address] [place] [address] [phone] 0 09/12/2024 15:54:43 09/20/2024 10:38:09 General examination of patient 164059499 Z00.01 Nocturnal muscle spasm 23551830 R25.2 Screening mammography 24 192094 Z12.31 Influenza vaccination declined 109332206 Z28.21 Left flank pain 34478585 9 R10.9 Type 2 hugh betes mellitus without complication 411095610 E11.9 Pain of le ft knee joint 4786385779 02701 M25.562 The MRI suggests a decrease in the joint space and a small effusion OV 12/15/2022S he needs a MRI to R/O internal derangemen tOrthopedi cs Acquired hypothyroidism 836798298 E03.9 Note from 11/08/2023 Increase Levothyrox ine to 75 mcgLabs 08/17/2023 TSH 9.920, Free T4 0.72 [id number] MD Shital WINN (3D SPECIALIST) [address] [place] [address] 29292-389 0 09/22/2024 14:23:44 10/07/2024 09:58:34 Gynecologic examination 31549636 Z01.419 WNL exam and history. PAP not indicated. Already has Rx for mammogram. Requesting refills of premarin & paroxetine .f/u w/ PCP for back pain Menopausal flushing 1983 95883 N95.1 Symptomati c.Refill of chronic paroxetine given Atrophic vaginitis 03561 000 N95.2 Symptomati c.Refill of chronic premarin Body mass index 25-29 - overweight [id number] Z68.28 BMI 28Recommen d continued lifestyle modificati ons & exercise >150mins/w k [id number] MD Shital Isbell (Adult Med) [address] [place] [address] [phone] 10/08/2024 15:01:44 10/14/2024 08:47:26 Administration of influenza vaccine [id number] Z23 Screening for malignant neoplasm of colon 463860455 Z12.11 Increased frequency of urination 691480059 R35.0 Chronic back pain 637167 002 G89.29 Administra tion of pneumococcal vaccine 15079256 Z23 [id number] MD Shital Isbell (Adult Med) [address] [place] [address] [phone] 12/18/2024 14:45:26 12/24/2024 10:59:12 Type 2 diabetes mellitus 30149089 E11.9 Constipation 44123276 K5 9.00 Cologuard 09/27/2021 -ve Malaise and fatigue 2717 76527 R53.83 History of syncope 56877 34321 45015 Z86.79 Cardiology Health Concerns Section Related Observation LastModified by Organization Detai ls LastModified Time None Recorded Concern Status LastModified by Organization Details LastModified Time None Recorded Advance Directives Directive N: Payers Insurance Date Sequence Insurance Name Policy Number Policy Clark Covered Member ID Clark Member ID Guarantor Name 05/13/[address] [facility] ON OR AFTER 05/19/21 (MEDICAID REPLACEMENT - HMO) Cassandra Mathis [id number] Cassandra Mathis 05/13/[address] [facility] ON OR AFTER 05/19/21 (MEDICAID REPLACEMENT - HMO) Cassandra Mathis [id number] Cassandra Mathis 02/10/2021 SLIDING FEE SCHEDULE - DISCOUNT Cassandra Mathis 05/13/2025 1 [facility] [id number] Cassandra Mathis [id number] Cassandra Mathis 05/13/2025 1 [facility] PRIOR TO 05/19/2021 (MEDICAID REPLACEMENT - HMO) Cassandra Mathis [id number] Cassandra Mathis 05/13/2025 1 [place] [facility] [place] [facility] Cassandra Mathis [id number] Cassandra Mathis 02/10/2021 SLIDING FEE SCHEDULE - DISCOUNT Cassandra Mathis 11/24/2020 2 *SELF PAY* Do greta Mathis 05/13/2025 1 [place] [facility] [place] [facility] Cassandra Mathis [id number] Cassandra Mathis Notes Date Note Type Note Provider Name and Address Organization Details Recorded Time 3 text/html MenopauseReported bypatient.Onset/Timin- 6 months; evening; night Quality:night sweats; sleep issues; hot flashes Severity:moderate Alleviating Factors:traditional HRT; intravaginal estrogen Associated Symptoms:no pelvic pain; no abnormal bleeding; no vaginal discharge; no dysuria; no dispareunia; no changes in bowel function; no fever; no irritability; no depression; no anxiety; no changes in urination;vaginal dryness 58 YO F with history of total hysterectomy & lichen sclerosus who present for hot flashes for 2 months. Patient reports that she will wake up in the middle of the night due to hot flashes. She was previously taking estradiol but discontinue earlier this year due to RF. She has tried OTC medications but they have not worked and would like to discuss alternatives. Patient also reports vaginal dryness for couple months. Patient states that she has used Premarin cream in the past and it helped but she ran out medication. Patient would like to refill Premarin cream. Patient denies itchiness, dyspareunia, rashes and odor. MAGO GILES Attn: Accounting,[address] [place], [address], [facility] 09/04/2023 15:07:59 4 text/html Back PainReported bypatient.Location:pain is not radiating Quality:sharp Severity:worsening;severe (8-10) Duration:acute; chronic Onset/Timing:recurrent episode Context:prior back problems Alleviating Factors:relieved by changing position Aggravating Factors:movement/position ing Associated Symptoms:no fever; no weak limbs; no numbness of the legs/feet; no tingling; no incontinence; no shortness of breath They said it wasn't COVID, really bad coldThis left side, I can be standing up and washing my dishesMy Kidneys Ms Mathis was last seen on 08/20/2023, she was admitted 07/03-07/04/2024 with MS changes and NANCY, it all started with a URI. She has been having left sided lower back pain for some time, the pain improves when she sits and there is no hematuria, fever or radiation of the pain. She had a fall at work today and she has some pain in her left knee, she has also been having nocturnal cramps Flor Auguste MD Attn: Accounting[address] [place], [address], [facility] 09/12/2024 18:33:42 4 text/html Annual GYNReported bypatient.Urinary symptoms:No hematuria; No incontinence Vulva:No genital lesion Vagina:Normal vaginal discharge Breast:No breast pain; No breast lump; No nipple discharge Sexual complaints:No pain during intercourse; Normal libido Menopausal Symptoms:Hot flashes;Inadequacy of lubrication of vaginal mucosa;Insomnia due to night sweats Psychological symptoms:No anxiety; No PMDD;Depression(2/2 back pain) Preventive measures:Encourage self breast examination 59 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 Complaints of back pain. Hx of back surgery. Heavy lifting. Had early historectomy 22. Has severe hot flashes. Asking for refill of med paroxetine.PAP no longer indicated 2/2 Ovarian cyst rupture.Mammogram already ordered.premarin cream requested. Vaginal dryness. MAXINE AGUIRRE MD Attn: Accounting, [place], [address], [facility] 10/06/2024 09:11:02 4 text/html Abdominal PainReported bypatient.Location:[facility] Quality:pain Severity:mild Onset/Timing:worse Modifying Factors:nothing gives relief Associated Symptoms:no fever; no chills; no blood in the urine; no heartburn; no shortness of breath Other:denies possible pregnancyDiabetes F/UReported bypatient.Labs:last A1C result: 6.1% Context:normal range of home blood sugars (in the low 100s); seeing eye doctor regularly; checking feet regularly Associated Symptoms:no weight gain; no dizziness; no sweats; no headaches; no confusion; no increased thirst; no increased appetite; no increased urination; no blurred vision; no numbness of feet; no calluses on feet;weight loss (1.5 lbs) I want to know what is causing this pain, on my left sideMy sister, she said I could have a bowel blockage She complains of a feeling of incomplete evacuation after urinating, she had a bladder lift several years ago. There is no dysuria. She also has pain on her left side, around the iliac area the lower back. She has bowel movements every other day, she denies being constipated and had a colonoscopy in [place] prior to moving here in 2019. We have not had any success getting a copy of the colonoscopy and her sister is concerned. Flor Auguste MD Attn: Accounting, [place], [address], [facility] 10/09/2024 09:14:44 5 text/html ConstipationReported bypatient.Quality:worseni ng Severity:severe Duration:present <1 month Onset/Timing:once every three days Contextno recent surgery; no stress; no anemia; normal toileting ability; no history of IBS; no history of chronic idiopathic constipation; no history of Hirschsprung's; no family history of colon polyps or cancer; no history of colonoscopy; no history of Diverticulosis; no abnormal imaging;recent opiates Alleviating Factors:having bowel movement Associated Symptoms:no abdominal pain; no excess gas; no fever; no rash; no joint pain; no weight loss; no nausea; no vomiting; no heartburn; no blood in stool; no mucus in stool; no black or tarry stools; no weakness; no nutrient deficiency; no fecal incontinence I don't know, I felt light headed and next thing I know I was in the hospital ER at on 12/05/2024 with a URI.ER at [facility] on 11/21/2024-11/22/2024 with Syncope and chronic LBP.ER in September, with an admission for 2-3 days after a syncopal episode. Ms Mathis had a URI earlier this week, she is better but still weak. Sometime after her last visit, she remembers having what she felt was indigestion. 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 She had a colonoscopy in , she had a negative Cologuard in 2020 and she is on chronic opioids. Flor Auguste MD Attn: Accounting,[address] [facility], [place], [address], [facility] 12/19/2024 09:00:43 OBGyn Episode Ob Episode Information Episode Created Date Number of Fetuses Patient Bloodtype Patient rh Status Prepregnancy Weight lbs Domestic Partner Domestic Partner Phone Father Name It Account Manager Status 08/29/20 23 1 CLOSED Fetus Data First Name Last Name Admitted to NICU Weight (g) Sex Living Outcome Pediatric Complications Fetus ID Race Codes Race Delivery Type F Full Term [id number] Primary Riley Calculation Initial Riley Date Initial Exam Date Initial Exam Provider Initial Ultrasound Date Last Menstrual Period Date Ultra Sound Weeks Gestation 0 Eighteen To Twenty Week Riley Update Ultra Sound Date Fundal Height At Umbil Quickening Date Ultra Sound Latest Weeks Gestation Final Riley Confirmed By Final Riley Confirmed Date Final Riley Date Ultra Sound Latest Days Gestation 0 0 Menstrual History Last Menstrual Date Menses Monthly On Bcp Conception Prior Menses Frequency Hcg Plus Date Menarche Onset Age Delivery Information Delivery Date Delivery Type Labor Anesthesia Weeks Gestation Incision Type Labor Labor Length Hrs Delivered By Post Complications Tubal Sterilization Discharge Date Comments 3 Discharge Information Feeding Method Contraceptive Method Maternal HG B and HCT Levels Ob Episode Information Episode Created Date Number of Fetuses Patient Bloodtype Patient rh Status Prepregnancy Weight lbs Domestic Partner Domestic Partner Phone Father Name It Account Manager Status 08/29/20 23 1 CLOSED Fetus Data First Name Last Name Admitted to NICU Weight (g) Sex Living Outcome Pediatric Complications Fetus ID Race Codes Race Delivery Type F Full Term [id number] Vaginal Riley Calculation Initial Riley Date Initial Exam Date Initial Exam Provider Initial Ultrasound Date Last Menstrual Period Date Ultra Sound Weeks Gestation 0 Eighteen To Twenty Week Riley Update Ultra Sound Date Fundal Height At Umbil Quickening Date Ultra Sound Latest Weeks Gestation Final Riley Confirmed By Final Riley Confirmed Date Final Riley Date Ultra Sound Latest Days Gestation 0 0 Menstrual History Last Menstrual Date Menses Monthly On Bcp Conception Prior Menses Frequency Hcg Plus Date Menarche Onset Age Delivery Information Delivery Date Delivery Type Labor Anesthesia Weeks Gestation Incision Type Labor Labor Length Hrs Delivered By Post Complications Tubal Sterilization Discharge Date Comments 9 Discharge Information Feeding Method Contraceptive Method Maternal HG B and HCT Levels
--- OUTSIDE RECORDS SUMMARY | 2025-05-27 14:14 | XMS_ITS | Clinical Summary ---
Author Organization [facility] Address [address] [place] [address] Care Team Providers Care Electricity Trading Analyst Name Role Phone Flor Auguste MD Primary Care Provider Allergies Active Allergy Reactions Criticality Noted Date Comments Aspirin Nausea only Low 11/27/2022 Calcium Channel Blocking Age nt Diltiazem Analogues Stomach upset Low 02/15/2023 Medications carvediloL (COREG) 25 mg tabletIndication s:hypertension Take 1 tablet (25 mg total) by mouth 2 (two) times a day with meals 2 Active valsartan (DIOVAN) 320 mg tabletIndication s:hypertension Take 1 tablet (320 mg total) by mouth photovoltaic subcontractor before breakfast 2 Active rosuvastatin (CRESTOR) 10 mg tabletIndication s:hyperlipidemia Take 1 tablet (10 mg total) by mouth nightly 2 Active spironolactone (ALDACTONE) 25 mg tabletIndication s:Ascites Take 1 tablet (25 mg total) by mouth photovoltaic subcontractor before breakfast 2 Active dapagliflozin (FARXIGA) 5 mg tabletIndication s:type 2 diabetes mellitus Take 1 tablet (5 mg total) by mouth photovoltaic subcontractor before breakfast Active levothyroxine (SYNTHROID) 75 mcg tabletIndication s:hypothyroidism Take 1 tablet (75 mcg total) by mouth photovoltaic subcontractor before breakfast 0 Active FeroSuL 325 mg (65 mg iron) tablet TAKE 1 TABLET BY MOUTH DAILY FOR IRON REPLACEMENT 3 Active estrogens, conjugated, (Premarin) vaginal creamIndications :Postmenopausal Urethral Atrophy Insert 0.5 g into the vagina as needed 0 Active clobetasoL (TEMOVATE) 0.05 % ointmentIndicati ons:Skin Inflammation Apply 1 application topically as needed 1 Active albuterol (PROAIR RESPICLICK) 90 mcg/actuation inhalerIndicatio ns:Acute Asthma Attack Inhale 2 puffs every 6 (six) hours as needed for wheezing Active bacitracin-polym yxin B (POLYSPORIN) ointmentIndicati ons:Minor Bacterial Skin Infections,wound care Apply 1 Application topically 3 (three) times a day 20 g 3 Active acetaminophen 500 mg capsuleIndicatio ns:Pain Take 2 capsules (1,000 mg total) by mouth every 6 (six) hours as needed for pain 240 capsule 3 Active mupirocin (BACTROBAN) 2 % ointmentIndicati ons:Minor Bacterial Skin Infections Apply topically 2 (two) times a day 15 g 3 Active acyclovir (ZOVIRAX) 400 mg tablet Take 1 tablet (400 mg total) by mouth 2 (two) times a day as needed 4 Active oxyCODONE (ROXICODONE) 10 mg tablet Take 1 tablet (10 mg total) by mouth 2 (two) times a day as needed 4 Active morphine ER (MS CONTIN) 30 mg 12 hr tablet Take 1 tablet (30 mg total) by mouth 2 (two) times a day as needed 4 Active ergocalciferol (VITAMIN D) 50,000 unit capsule Take 1 capsule (50,000 Units total) by mouth once a week Pt takes on Sundays Active benzonatate (TESSALON) 200 mg capsuleIndicatio ns:Cough Take 1 capsule (200 mg total) by mouth 3 (three) times a day 20 capsule 4 Active tiZANidine (ZANAFLEX) 4 mg tabletIndication s:Muscle Spasticity of Cerebral Origin Take 1 tablet (4 mg total) by mouth every 8 (eight) hours as needed for muscle spasms 90 tablet 5 Active gabapentin (NEURONTIN) 300 mg capsuleIndicatio ns:Neuropathic Pain,Restless Legs Syndrome Take 1 capsule (300 mg total) by mouth 3 (three) times a day 90 capsule Active Active Problems Problem Noted Date Diagnosed Date Syncope and collapse 07/04/2024 Confusion 07/03/2024 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 Resolved Problems Problem Noted Date Diagnosed Date Resolved Date Parotid mass 03/09/2023 03/15/2023 Mass of right parotid gland 01/30/2023 03/29/2023 Surgical History Surgery Date Site/Laterality Comments BACK SURGERY 11/19/2018 - 11/18/2019 HYSTERECTOMY 11/19/1988 - 11/18/1989 with GB removed US GUIDED BIOPSY LYMPH NODE SUPERFICIAL LEFT 01/23/2023 N/A BLADDER SUSPENSION CHOLECYSTECTOMY 11/19/1988 - 11/18/1989 PAROTIDECTOMY 03/09/2023 Right Medical History Medical History Date Comments Hypertension Asthma Hypothyroidism Chronic pain disorder Family History Medical History Relation Name Comments Heart disease Father Kidney disease Mother Cancer Sister Kidney disease Sister Anesthesia problems Neg Hx Relation Name Status Comments Father Mother Sister Social History Tobacco Use Types Packs/Day Years Used Date Smoking Tobacco: Former Cigarettes Q uit: 1989 Smokeless Tobacco: Never Tobacco Cessation:Counseling Given: Not Answered [facility] Utilities Answer Date Recorded In the past 12 months has [employer] electric, gas, oil, or water [employer] threatened to shut off services in your home? No 07/04/2024 Social Connection and Isolat ion Panel [NHANES] Answer Date Recorded In a typical week, how many times do you talk on the phone with family, friends, or neighbors? More than three times a week 07/04/2024 How often do you get togethe r with friends or relatives? Twice a week 07/04/2024 How often do you attend [facility] or [facility] services? Never 07/04/2024 Do you belong to any clubs o r organizations such as jain groups, unions, fraternal or athletic groups, or school groups? No 07/04/2024 How often do you attend meet ings of the clubs or organizations you belong to? Never 07/04/2024 Are you , , di vorced, , never , or living with a partner? Living with partner 07/04/2024 AUDIT-C Answer Date Recorded Q1: How often do you have a drink containing alcohol? Never 07/03/2024 Q2: How many drinks containi ng alcohol do you have on a typical day when you are drinking? Patient does not drink Q3: How often do you have si x or more drinks on one occasion? Never 07/03/2024 Overall Financial Resource Strain (CARDIA) Answe r Date Recorded How hard is it for you to pa y for the very basics like food, housing, medical care, and heating? Not very hard 07/04/2024 Hunger Vital Sign Answer Date Recorded Within the past 12 months, y ou worried that your food would run out before you got the money to buy more. Never true 07/04/20 24 Within the past 12 months, t he food you bought just didn't last and you didn't have money to get more. Never true 07/04/2024 PRAPARE - Transportation Answer Date Re corded In the past 12 months, has l ack of transportation kept you from medical appointments or from getting medications? No 06/19 In the past 12 months, has l ack of transportation kept you from meetings, work, or from getting things needed for daily living? No 07/04/2024 Housing Stability Vital Sign Answer Chandler e Recorded In the last 12 months, was t here a time when you were not able to pay the mortgage or rent on time? No 07/04/2024 In the past 12 months, how m any times have you moved where you were living? 0 07/04/2024 At any time in the past 12 m [facility], were you homeless or living in a [facility] (including now)? No 07/04/2024 Personal Safety Answer Date Recorded Have you ever been in or are you currently in a harmful physical or emotional relationship or is someone making you feel afraid or unsafe? Denies 11/21/2024 Comments No Sex and Gender Information Value Date Recorded Sex Assigned at Not on file Legal Sex Female 6:38 PM LENDING ACTIVITIES SUPERVISOR Gender Identity Not on file Sexual Orientation Not on file Obstetrics History Last Filed Vital Signs Vital Sign Reading Time Taken Comments Blood Pressure 181/106 11/21/2024 6:06 PM LENDING ACTIVITIES SUPERVISOR Pulse 76 11/21/2024 6:06 PM LENDING ACTIVITIES SUPERVISOR Temperature 37.2 C (98.9 F) 11/21/2024 6:06 PM LENDING ACTIVITIES SUPERVISOR Respiratory Rate 18 11/21/2024 6:06 PM LENDING ACTIVITIES SUPERVISOR Oxygen Saturation 97% 11/21/2024 6:06 PM LENDING ACTIVITIES SUPERVISOR Inhaled Oxygen Concentration - - Weight 68 kg (150 lb) 11/21/2024 6:06 PM LENDING ACTIVITIES SUPERVISOR Height 160 cm (5' 3) 11/21/2024 6:06 PM LENDING ACTIVITIES SUPERVISOR Body Mass Index 26.57 11/21/2024 6:06 PM LENDING ACTIVITIES SUPERVISOR Plan of Treatment Health Maintenance Due Date Last Done Comments Colon Cancer Screening-Colonoscopy 1963 Depression Screening 1963 Hepatitis C Screening 1963 DTaP/Tdap/Td Vaccine (1 - Tdap) 1974 Hepatitis B Screening 1981 Regular Well Visit/Exam 18-64 1981 Pneumococcal vaccine <65 (1 of 2 - PCV) 1982 Zoster Vaccine (1 of 2) 2013 Breast Cancer Screening-Mammogram 04/03/2024 023 Covid-19 Vaccine ( season) 2024 11/17/2021, 04/11/2021, 03/21/2021 Influenza Vaccine Completed 10/09/2024 Insurance [facility] Advance Directives For more information, please contact: [phone] * Full Code (Latest Code Status on File) Date Activated Date Inactivated Comments 07/03/2024 12:55 PM 07/04/2024 11:18 PM * Full Code Date Activated Date Inactivated Comments 03/09/2023 3:52 PM 03/10/2023 5:05 PM * Full Code Date Activated Date Inactivated Comments 01/23/2023 12:59 PM 01/24/2023 5:22 AM Care Teams Electricity Trading Analyst Relationship Specialty Start Date End Date Flor Auguste MD [address] [place] [id number] PCP - General Internal Medicine 12/30/20
--- OUTSIDE RECORDS SUMMARY | 2025-05-27 14:14 | XMS_ITS | Clinical Summary ---
Author Organization [facility] Address [address] [place] [address] Care Team Providers Care Russian History Professor Name Role Phone KarmenSheeba lewis Primary Care Provider [phone] Source Comments [facility],non-owned Affiliates and Associated Physician Practices is amultiple site organization consisting of ambulatory clinics and hospital sitesin [place], [place], [place] and [place]. This disclosure is being madepursuant to the Care Everywhere program and may not contain all information available regarding this patient. Last updated 18.[facility] Allergies Active Allergy Reactions Criticality Noted Date Comments Aspirin Vomiting High 04/29/2021 Medications * Be aware that medications may not be up to date on this document. Alwaysverify current medications with the patient. clobetasol (TEMOVATE) 0.05 % ointment Apply 1 g to affected area once daily as needed 01/20/2021 Active cyclobenzaprine (FLEXERIL) 10 MG tablet Take 10 mg by mouth every 8 hours as needed 01/09/2021 Active estradiol (ESTRACE) 0.5 MG tablet Take 0.5 mg by mouth once daily 04/21/2021 Active PREMARIN 0.625 MG/GM vaginal cream Insert 1 g into the vagina as needed 01/26/2021 Active famotidine (PEPCID) 20 MG tablet Take 1 tablet by mouth once daily 03/08/2021 Active levothyroxine (SYNTHROID) 75 MCG tablet Take 1 tablet by mouth once daily 04/11/2021 Active losartan (COZAAR) 50 MG tablet Take 1 tablet by mouth once daily 04/11/2021 Active meloxicam (MOBIC) 7.5 MG tablet Take 7.5 mg by mouth 2 times daily as needed 03/11/2021 Active morphine CR 12hr (MS CONTIN) 15 MG tablet Take 1 tablet by mouth every 12 hours 04/28/2021 Active naproxen (NAPROSYN) 500 MG tablet Take 500 mg by mouth every 12 hours 04/22/2021 Active NIFEdipine CR 24hr (ADALAT CC) 90 MG tablet Take 1 tablet by mouth once daily 04/11/2021 Active rosuvastatin (CRESTOR) 10 MG tablet Take 1 tablet by mouth once daily 04/11/2021 Active tiZANidine (ZANAFLEX) 4 MG tablet Take 1 tablet by mouth every 6 hours as needed 04/21/2021 Active metFORMIN (GLUCOPHAGE) 500 MG tablet Take 500 mg by mouth once daily Active oxyCODONE-aceta minophen (PERCOCET) 10-325 MG tablet Take 1 tablet by mouth every 6 hours as needed 05/25/2021 Active Social History Tobacco Use Types Packs/Day Years Used Date Smoking Tobacco: Former Cigarettes Q uit: 06/03/1991 Smokeless Tobacco: Never Alcohol Use Standard Drinks/Week Comments Never 0 (1 standard drink = 0.6 oz pur e alcohol) Comments No Sex and Gender Information Value Date Recorded Sex Assigned at Not on file Legal Sex Female 7:50 AM CDT Gender Identity Not on file Sexual Orientation Not on file Last Filed Vital Signs Vital Sign Reading Time Taken Comments Blood Pressure 122/80 06/10/2021 1:52 PM CDT Pulse 64 06/03/2021 3:45 PM CDT Temperature 36.2 C (97.1 F) 04/29/2021 1:01 PM CDT Respiratory Rate 12 06/03/2021 3:45 PM CDT Oxygen Saturation 100% 06/03/2021 3:45 PM CDT Inhaled Oxygen Concentration - - Weight 64.4 kg (142 lb) 06/10/2021 1:52 PM CDT Height 160 cm (5' 3) 06/03/2021 10:58 AM CDT Body Mass Index 25.15 06/03/2021 10:58 AM CDT Plan of Treatment Health Maintenance Due Date Last Done Comments YANE (AGES 45-75) - COL ON CA SCREENING 1963 COLON MONITORING 1963 COLONOSCOPY - COLON CA SCREENING 1963 CT COLONOGRAPHY - COLON CA SCREENING 1963 Colorectal Cancer Screening 1963 FIT - COLON CA SCREENING 1963 FLEX SIG - COLON CA SCREENING 1963 MAMMOGRAM 1963 DTAP/TDAP/TD VACCINES (1 - Tdap) 1982 PAP SMEAR 1984 PNEUMOCOCCAL VACCINE 50+ (1 of 1 - PCV) 2013 ZOSTER VACCINE (1 of 2) 2013 SCREENING FOR DIABETES 06/14/2024 , 06/03/2021 COVID-19 VACCINE (1 - 2023-2 5 season) 2024 DEPRESSION SCREENING 11/19/2024 INFLUENZA VACCINE (#1) 2025 Respiratory Syncytial Virus (RSV) Vaccine Pt: or over 60 yrs (1 - 1-dose 75+ series) 2038 HEPATITIS C SCREENING Completed 04/29/2021 HIV SCREENING Completed 04/29/2021 HEPATITIS B VACCINE Aged Out No longe r eligible based on patient's age to complete this topic HIB VACCINE Aged Out No longer eligi ble based on patient's age to complete this topic HPV VACCINE Aged Out No longer eligi ble based on patient's age to complete this topic MENINGOCOCCAL (Group B) VACCINE SHARED DECISION-MAKING Aged Out No longer eligible based on patient's age to complete this topic MENINGOCOCCAL GROUPS A/C/Y/W VACCINE Aged Out No longer eligible b ased on patient's age to complete this topic Procedures Procedure Name Priority Date/Time Associated Diagnosis Comments COMPREHENSIVE METABOLIC PANEL Routine 06/14/2021 12:18 PM CDT Neutropenia, unspecified type HEPATITIS C ANTIBODY Routine 04/29/2021 12:59 PM CDT Neutropenia, unspecified type HIV-1 HIV-2 ANTIBODY + HIV P24 AG PANEL Routine 04/29/2021 12:59 PM CDT Neutropenia, unspecified type from Last 3 Months or Most Recently Relevant to Health Maintenance Results * COMPREHENSIVE METABOLIC PANEL (06/14/2021 12:18 PM CDT) Glucose 92 65 - 99 mg/dL [facility] Comment: Fasting reference interval BUN 16 7 - 25 mg/dL [facility] Creatinine 1.02 0.50 - 1.05 mg/dL [facility] Comment: For patients >49 years of age, the reference limit for Creatinine is approximately 13% higher for people identified as -Ugandan. eGFR by MDRD 61 > OR = 60 mL/min/1 .73m2 [facility] eGFR by MDRD 70 > OR = 60 mL/min/1 .73m2 [facility] BUN/Creatinine Ratio NOT APPLICABLE 6 - 22 (calc) [facility] Sodium 140 135 - 146 mmol/L [facility] Potassium 4.1 3.5 - 5.3 mmol/L [facility] Chloride 104 98 - 110 mmol/L [facility] CO2 31 20 - 32 mmol/L [facility] Calcium 9.6 8.6 - 10.4 mg/dL [facility] Protein Total 7.1 6.1 - 8.1 g/dL [facility] Albumin 4.2 3.6 - 5.1 g/dL [facility] Globulin Total 2.9 1.9 - 3.7 g/dL (calc) [facility] Albumin/Globulin Ratio 1.4 1.0 - 2.5 (calc) [facility] Bilirubin Total 0.3 0.2 - 1.2 mg/dL [facility] Alkaline Phosphatase 67 37 - 153 U/L [facility] AST 18 10 - 35 U/L [facility] ALT 12 6 - 29 U/L [facility] Comment: Test Performed at: [facility] [address] [address] [place] [address] DRISS SEALS DO,MPH Blood BLOOD SPECIMEN / Unknown 06/14/2021 12:18 PM CDT 06/14/2021 12:19 PM CDT Prabhjot Ayoub MD LAB - CHEMISTRY ORDERABLES Sugar l Result [facility] [address] [place] [address] * HIV-1 HIV-2 ANTIBODY + HIV P24 AG PANEL (04/29/2021 12:59 PM CDT) Pathologist [facility] HIV Antigen/Antibod y 1 & 2 Non-reacti ve Non-react zachery 04/29/2021 4:36 PM CDT [facility] Comment:Neither HIV-1 p24 An tigen nor HIV-1/HIV-2 Antibodies are detected. Blood BLOOD SPECIMEN / Unknown Lab Venipuncture / Unknown 04/29/2021 12:59 PM CDT 04/29/2021 1:54 PM CDT Prabhjot Ayoub MD LAB - CHEMISTRY ORDERABLES Sugar l Result Performing Organization Address [facility] Co de Phone Number [address] [address], [facility] [phone] * HEPATITIS C ANTIBODY (04/29/2021 12:59 PM CDT) Hepatitis C Antibody Non-react zachery Non-reac tive 04/29/2021 4:36 PM CDT [facility] Comment:Hepatitis C Antibody screen indicates no serologic evidence of past or current infection with Hepatitis C Virus. Patients with unexplained liver disease who are immunocompromised or suspected of having acute Hepatitis C infection may benefit from Nucleic Acid Test (CARMEN) for Hepatitis C Viral RNA to confirm Hepatitis C status. Blood BLOOD SPECIMEN / Unknown Lab Venipuncture / Unknown 04/29/2021 12:59 PM CDT 04/29/2021 1:54 PM CDT Prabhjot Ayoub MD LAB - CHEMISTRY ORDERABLES Sugar l Result Performing Organization Address [facility] Co de Phone Number [address] [address], [facility] [phone] from Last 3 Months or Most Recently Relevant to Health Maintenance Insurance [facility] Care Teams Russian History Professor Relationship Specialty Start Date End Date Sheeba Bocanegra DO [address] [place] [address] PCP - General 06/10/21
--- OUTSIDE RECORDS SUMMARY | 2025-05-27 14:14 | XMS_ITS | Referral Summary ---
Author Organization [facility] Address [address] [place] [address] Care Team Providers Care Rrt Name Role Phone Flor Auguste MD Primary [...] 1 tablet (320 mg total) by mouth automobile locator before breakfast 2 Active rosuvastatin (CRESTOR) 10 mg tabletIndication s:hyperlipidemia Take 1 tablet (10 mg total) by mouth nightly 2 Active spironolactone (ALDACTONE) 25 mg tabletIndication s:Ascites Take 1 tablet (25 mg total) by mouth automobile locator before breakfast 2 Active dapagliflozin (FARXIGA) 5 mg tabletIndication s:type 2 diabetes mellitus Take 1 tablet (5 mg total) by mouth automobile locator before breakfast Active levothyroxine (SYNTHROID) 75 mcg tabletIndication s:hypothyroidism Take 1 tablet (75 mcg total) by mouth automobile locator before breakfast 0 Active FeroSuL 325 mg [...] 3 (three) times a day 90 capsule 5 Active Active Problems Problem Noted Date Diagnosed Date Syncope and collapse 07/04/2024 Confusion 07/03/2024 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 Never 07/04/2024 Do you belong to any clubs o r organizations such as voodoo groups, unions, fraternal or athletic groups, or [...] any time in the past 12 m [place], were you homeless or living in a penitentiary (including now)? No 07/04/2024 Personal Safety Answer Date Recorded Have you ever been in or are you currently in a harmful physical or emotional relationship or is someone making you feel afraid or unsafe? Denies 11/21/2024 Comments No Sex and Gender Information Value Date Recorded Sex Assigned at Not on file Legal Sex Female 6:38 PM [employer] Gender Identity Not on file Sexual Orientation Not on file Last Filed Vital Signs Vital Sign Reading Time Taken Comments Blood Pressure 181/106 11/21/2024 6:06 PM [employer] ENGINEER Pulse 76 11/21/2024 6:06 PM [employer] ENGINEER Temperature 37.2 C (98.9 F) 11/21/2024 6:06 PM [employer] ENGINEER Respiratory Rate 18 11/21/2024 6:06 PM [employer] ENGINEER Oxygen Saturation 97% 11/21/2024 6:06 PM [employer] ENGINEER Inhaled Oxygen Concentration - - Weight 68 kg (150 lb) 11/21/2024 6:06 PM [employer] ENGINE[employer] Height 160 cm (5' 3) 11/21/2024 6:06 PM [employer] ENGINEER Body Mass Index 26.57 11/21/2024 6:06 PM [employer] ENGINEER Plan of Treatment Not on file Insurance [facility] Advance Directives For more information, please contact: [phone] * Full Code (Latest Code Status on File) Date Activated Date Inactivated Comments 07/03/2024 12:55 PM 07/04/2024 11:18 PM * Full Code Date Activated Date Inactivated Comments 03/09/2023 3:52 PM 03/10/2023 5:05 PM * Full Code Date Activated Date Inactivated Comments 01/23/2023 12:59 PM 01/24/2023 5:22 AM Care Teams Rrt Relationship Specialty [place] [address] [place] [id number] PCP - General Internal Medicine 12/30/20
--- OUTSIDE RECORDS SUMMARY | 2025-05-27 14:15 | XMS_ITS | Patient Health Record ---
Author Organization [facility] Address [address] [place] [address] Reason For Referral No Information Medications Medication SIG (Take, Route, Frequency, Duration) Notes Start Date End Date Status Ergocalciferol 1.25 MG (65431 UT) 1 capsule Orally Once a week; Duration: 90 day(s) Active Problems Problem Type SNOMED Code ICD Code Onset Dates Problem Status W/U Status Risk Notes Problem Hyperlipidemia (45267685) Hyperlipidemia, unspecified (E78.5) Active confirmed Problem Chronic pain syndrome (871243810) Chronic pain syndrome (G89.4) Active confirmed Problem Essential hypertension (43823192) Essential (primary) hypertension (I10) Active confirmed Problem Atherosclerotic heart disease of [place] coronary artery without angina pectoris (364995625516931) Atherosclerotic heart disease of [place] coronary artery without angina pectoris (I25.10) Active confirmed Problem Heart failure (05132646) Heart failure, unspecified (I50.9) Active confirmed Problem Chronic kidney disease stage 3A (disorder) (435864192) Chronic kidney disease, stage 3a (N18.31) Active confirmed Plan Of Treatment No Information
--- NOTE | 2025-05-27 14:56 | ECG_ITS ---
Test Date: 2025-05-27 15:44:32 Measurements Intervals [place] Rate: 54 P: 53 WI: 164 QRS: 3 QRSD: 74 T: 61 QT: 404 QTc: 385 Interpretive Statements SINUS BRADYCARDIA NONSPECIFIC T-WAVE ABNORMALITY Compared to ECG 12/14/2024 16:25:38 T-wave abnormality now present Sinus rhythm no longer present Myocardial infarct finding no longer present Electronically Signed On 05-28-2025 11:39:40 CDT by Bryan Knott M.D.
--- NOTE | 2025-05-27 14:58 | ED.WEAKNESS ---
HPI - Weakness General Chief complaint: Weakness <Lilly Fenton PA-C - Last Filed: 05/27/25 14:59> Stated complaint: weakness <Lilly Fenton PA-C - Last Filed: 05/27/25 14:59> Time Seen by Provider: 05/27/25 15:49 <Lilly Fenton PA-C - Last Filed: 05/27/25 14:59> Focused HPI: 60-year-old female presents to the ED for generalized weakness, nausea, vomiting, diarrhea, left lower quadrant abdominal pain, shortness of breath and subjective fevers. Patient reports history of partial hysterectomy, no other abdominal surgeries. Denies history of kidney stones or diverticulitis. Has not taken her temperature. Denies dysuria or hematuria, cough or congestion, chest pain. 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 GENERAL: Well-appearing, well-nourished, and in no acute distress. HEAD: Normocephalic, atraumatic. CHEST: Clear to auscultation. ?No respiratory distress. ABD: Tenderness to the left lower quadrant. No rebound, guarding or rigidity. HEART: Regular rate and rhythm.? NEURO: ?Alert and oriented x3. Patient screened in triage and initial orders placed.? ?Additional care and disposition to be based upon?diagnostic testing and treatment. <Lilly Fenton PA-C - Last Filed: 05/27/25 14:59> History of Present Illness HPI Narrative: Agree with HPI <Jeremiah Jeffery MD - Last Filed: 05/27/25 17:50> Related Data Allergies/Adverse reactions: Allergies Allergy/AdvReac Type Severity Reaction Status Date / Time aspirin AdvReac Intermediate Vomiting Verified 12/14/24 12:47 <Lilly Fenton PA-C - Last Filed: 05/27/25 14:59> Review of Systems Review of Systems: All systems reviewed & are unremarkable except as noted in HPI and below <Jeremiah Jeffery MD - Last Filed: 05/27/25 17:50> Constitutional: Constitutional: Reports no additional constitutional complaints <Jeremiah Jeffery MD - Last Filed: 05/27/25 17:50> Cardiovascular: Cardiovascular: Reports no additional cardiovascular complaints <Jeremiah Jeffery MD - Last Filed: 05/27/25 17:50> Respiratory: Respiratory: Reports no additional respiratory complaints <Jeremiah Jeffery MD - Last Filed: 05/27/25 17:50> Gastrointestinal: Gastrointestinal: Reports no additional gastrointestinal complaints <Jeremiah Jeffery MD - Last Filed: 05/27/25 17:50> Genitourinary: Genitourinary: Reports no additional female genitourinary complaints <Jeremiah Jeffery MD - Last Filed: 05/27/25 17:50> PMFSH Past Medical History Medical History: Medical History (Updated 05/27/25 @ 17:48 by Jeremiah Jeffery MD) Lumbosacral radiculopathy Hypertension <Lilly Fenton PA-C - Last Filed: 05/27/25 14:59> Exam Narrative: GENERAL: Well-appearing, well-nourished, and in no acute distress. HEAD: Normocephalic, atraumatic. ENT: Mucous membranes moist. CHEST: Clear to auscultation. No respiratory distress. HEART: Regular rate and rhythm. Normal peripheral pulses. ABDOMEN: Soft, mildly tender left lower quadrant from nondistended. EXTREMITIES: Normal range of motion. No edema. SKIN: Warm, dry, no rash. NEURO: Alert and oriented x3. PSYCH: Normal mood and affect. <Jeremiah Jeffery MD - Last Filed: 05/27/25 17:50> Course Course Emergency Course: Patient formed results. Given reassurance. Discharge home with supportive care. <Jeremiah Jeffery MD - Last Filed: 05/27/25 17:50> Vital Signs Vital signs: Vital Signs Temperature 97.9 F 05/27/25 14:03 Pulse Rate 78 05/27/25 14:03 Respiratory Rate 18 05/27/25 14:03 Blood Pressure 120/84 05/27/25 14:03 Pulse Oximetry 100 05/27/25 14:03 Oxygen Delivery Room Air 05/27/25 14:03 Temperature 97.9 F 05/27/25 14:03 Pulse Rate 65 05/27/25 16:21 Respiratory Rate 13 05/27/25 16:21 Blood Pressure 153/101 H 05/27/25 16:21 Pulse Oximetry 100 05/27/25 16:21 Oxygen Delivery Room Air 05/27/25 15:21 <Lilly Fenton PA-C - Last Filed: 05/27/25 14:59> Vital Signs Temperature 97.9 F 05/27/25 14:03 Pulse Rate 78 05/27/25 14:03 Respiratory Rate 18 05/27/25 14:03 Blood Pressure 120/84 05/27/25 14:03 Pulse Oximetry 100 05/27/25 14:03 Oxygen Delivery Room Air 05/27/25 14:03 Temperature 97.9 F 05/27/25 14:03 Pulse Rate 65 05/27/25 16:21 Respiratory Rate 13 05/27/25 16:21 Blood Pressure 153/101 H 05/27/25 16:21 Pulse Oximetry 100 05/27/25 16:21 Oxygen Delivery Room Air 05/27/25 15:21 <Jeremiah Jeffery MD - Last Filed: 05/27/25 17:50> MDM - Weakness Lab Data Result diagrams: 05/27/25 15:33 05/27/25 15:33 <Lilly Fenton PA-C - Last Filed: 05/27/25 14:59> Labs: Lab Results 05/27/25 05/27/25 Range/Units 15:33 16:36 WBC 3.1 L (4.5-10.0) K/mm3 RBC 4.78 (4.2-5.4) M/mm3 Hgb 12.6 (12.0-15.0) g/dL Hct 40.7 (37.0-47.0) % MCV 85.1 (80-100) fl MCH 26.4 (26-34) pg MCHC 31.0 L (32-36) g/dl RDW 16.3 H (11.5-14.5) % Plt Count 244 (150-375) k/mm3 MPV 8.9 (7.4-10.4) fl Immature Gran % (Auto) 0.3 (0-0.5) % Neut % (Auto) 35.1 L (45.5-73.1) % Lymph % (Auto) 53.1 H (18.3-44.2) % [place] % (Auto) 9.6 H (2.6-8.5) % Eos % (Auto) 1.6 (0-4.4) % Baso % (Auto) 0.3 (0.2-1.2) % Lymph # (Auto) 1.65 (0.9-3.2) K/mm3 [place] # (Auto) 0.3 (0.1-0.6) K/mm3 Eos # (Auto) 0.1 (0-0.3) K/mm3 Baso # (Auto) 0.0 (0.0-0.1) K/mm3 Abs Immat Gran (auto) 0.01 (0.00-0.031) K/mm3 Absolute Neuts (auto) 1.1 L (1.3-6.7) K/mm3 Absolute Nucleated RBC 0.000 (0.0-0.012) K/mm3 Nucleated RBC % 0.0 (0.0-0.2) % Sodium 139 (137-145) mmol/L Potassium 4.7 (3.4-5.0) mmol/L Chloride 104 (98-107) mmol/L Carbon Dioxide 26 (22-30) mmol/L Anion Gap 9 (4-12) mmol/L BUN 17 (7-17) mg/dL Creatinine 1.24 H (0.7-1.0) mg/dL Estim Creat Clear Calc 39 ml/min Estimated GFR 44 L (59 - ) Glucose 103 (65-110) mg/dL Calcium 9.9 (8.4-10.2) mg/dL Total Bilirubin 0.6 (0.2-1.3) mg/dL AST 30 (14-36) U/L ALT 26 (6-35) U/L Alkaline Phosphatase 79 (38-126) U/L Troponin I < 0.012 (0.000-0.034) ng/mL Total Protein 8.7 H (6.3-8.2) g/dL Albumin 4.6 (3.5-5.1) g/dL Lipase 107 (23-300) U/L Urine Color Yellow (Yellow) Urine Appearance Clear (Clear) Urine pH 6.0 (5.0-9.0) Ur Specific [place] 1.027 (1.001-1.035) Urine Protein Negative (Negative) mg/dL Urine Glucose (UA) 1+ H (Negative) mg/dL Urine Ketones Negative (Negative) mg/dL Ur Blood (Man) Negative (Negative) Urine Nitrate Negative (Negative) Urine Bilirubin Negative (Negative) Urine Urobilinogen 0.2 (<2.0) mg/dL Leukocyte Esterase Rfl Negative (Negative) PEÑA/UL Influenza A (RT-PCR) Negative (Negative) Influenza B (RT-PCR) Negative (Negative) RSV (RT-PCR) Negative (Negative) SARS-CoV-2 RNA (RT-PCR) Negative (Negative) <Lilly Fenton PA-C - Last Filed: 05/27/25 14:59> Lab Results 05/27/25 05/27/25 Range/Units 15:33 16:36 WBC 3.1 L (4.5-10.0) K/mm3 RBC 4.78 (4.2-5.4) M/mm3 Hgb 12.6 (12.0-15.0) g/dL Hct 40.7 (37.0-47.0) % MCV 85.1 (80-100) fl MCH 26.4 (26-34) pg MCHC 31.0 L (32-36) g/dl RDW 16.3 H (11.5-14.5) % Plt Count 244 (150-375) k/mm3 MPV 8.9 (7.4-10.4) fl Immature Gran % (Auto) 0.3 (0-0.5) % Neut % (Auto) 35.1 L (45.5-73.1) % Lymph % (Auto) 53.1 H (18.3-44.2) % [place] % (Auto) 9.6 H (2.6-8.5) % Eos % (Auto) 1.6 (0-4.4) % Baso % (Auto) 0.3 (0.2-1.2) % Lymph # (Auto) 1.65 (0.9-3.2) K/mm3 [place] # (Auto) 0.3 (0.1-0.6) K/mm3 Eos # (Auto) 0.1 (0-0.3) K/mm3 Baso # (Auto) 0.0 (0.0-0.1) K/mm3 Abs Immat Gran (auto) 0.01 (0.00-0.031) K/mm3 Absolute Neuts (auto) 1.1 L (1.3-6.7) K/mm3 Absolute Nucleated RBC 0.000 (0.0-0.012) K/mm3 Nucleated RBC % 0.0 (0.0-0.2) % Sodium 139 (137-145) mmol/L Potassium 4.7 (3.4-5.0) mmol/L Chloride 104 (98-107) mmol/L Carbon Dioxide 26 (22-30) mmol/L Anion Gap 9 (4-12) mmol/L BUN 17 (7-17) mg/dL Creatinine 1.24 H (0.7-1.0) mg/dL Estim Creat Clear Calc 39 ml/min Estimated GFR 44 L (59 - ) Glucose 103 (65-110) mg/dL Calcium 9.9 (8.4-10.2) mg/dL Total Bilirubin 0.6 (0.2-1.3) mg/dL AST 30 (14-36) U/L ALT 26 (6-35) U/L Alkaline Phosphatase 79 (38-126) U/L Troponin I < 0.012 (0.000-0.034) ng/mL Total Protein 8.7 H (6.3-8.2) g/dL Albumin 4.6 (3.5-5.1) g/dL Lipase 107 (23-300) U/L Urine Color Yellow (Yellow) Urine Appearance Clear (Clear) Urine pH 6.0 (5.0-9.0) Ur Specific [place] 1.027 (1.001-1.035) Urine Protein Negative (Negative) mg/dL Urine Glucose (UA) 1+ H (Negative) mg/dL Urine Ketones Negative (Negative) mg/dL Ur Blood (Man) Negative (Negative) Urine Nitrate Negative (Negative) Urine Bilirubin Negative (Negative) Urine Urobilinogen 0.2 (<2.0) mg/dL Leukocyte Esterase Rfl Negative (Negative) PEÑA/UL Influenza A (RT-PCR) Negative (Negative) Influenza B (RT-PCR) Negative (Negative) RSV (RT-PCR) Negative (Negative) SARS-CoV-2 RNA (RT-PCR) Negative (Negative) <Jeremiah Jeffery MD - Last Filed: 05/27/25 17:50> Imaging Data Radiologist's impression: ITS Impressions Chest X-Ray 05/27/25 15:28 IMPRESSION: No acute cardiopulmonary pathology. Abdomen/Pelvis CT 05/27/25 16:47 IMPRESSION: Small bilateral pleural effusions, with adjacent compressive atelectasis, unchanged from prior. The heart is of normal size, without pericardial effusion. Small hiatal hernia is present. Liver: The liver demonstrates homogeneous enhancement and is not enlarged. Gallbladder and biliary system: The gallbladder is only minimally distended, and otherwise unremarkable. Pancreas: The pancreas enhances homogeneously without ductal dilatation. Spleen: Punctate calcifications identified within the splenic parenchyma, suggesting prior granulomatous disease. The remainder of the spleen otherwise enhances homogeneously and is not enlarged. Kidneys: The bilateral kidneys enhance symmetrically without hydronephrosis or renal calculi. Adrenal glands: Unremarkable. Gastrointestinal tract: Colonic diverticulosis without surrounding inflammatory change. Appendix: The appendix is not definitively visualized. However, no pericecal inflammatory change is identified suggest the presence of acute appendicitis. Vasculature: Retroaortic left renal vein is identified. The inferior vena cava is appropriately distended. No significant calcifications within the abdominal aorta. Lymph nodes: No pathologically enlarged or morphologically suspicious lymph nodes within the retroperitoneum or at the root of the mesentery. Pelvic structures: The bladder is only minimally distended, and otherwise unremarkable. The uterus is either surgically absent or markedly atrophic. Body wall and musculoskeletal: Small fat-containing umbilical hernia. Posterior fixation of the lower lumbar spine. Age-appropriate degenerative disease within the remainder of the lumbar spine. IMPRESSION: No findings within the left lower quadrant to account for patient's abdominal pain. Innumerable nonacute findings, as detailed above. <Jeremiah Jeffery MD - Last Filed: 05/27/25 17:50> Discharge Plan Discharge Clinical Impression: Gastroenteritis <Lilly Fenton PA-C - Last Filed: 05/27/25 14:59> Patient Disposition: Home <Lilly Fenton PA-C - Last Filed: 05/27/25 14:59> Condition: Stable <Lilly Fenton PA-C - Last Filed: 05/27/25 14:59> Instructions: Gastroenteritis (ED) <Lilly Fenton PA-C - Last Filed: 05/27/25 14:59> Additional Instructions: Please drink plenty of fluids at home. Return to the emergency department if you develop high fevers, have persistent severe abdominal pain, or have bloody stools or vomit, as these could be signs of a more serious medical emergency. Return to the emergency department if you are unable to keep down liquids because of severe nausea/vomiting. <Lilly Fenton PA-C - Last Filed: 05/27/25 14:59> Patient Language: Hungarian <Lilly Fenton PA-C - Last Filed: 05/27/25 14:59> Prescriptions: New dicyclomine 20 mg tablet 20 mg PO QID Qty: 20 0RF ondansetron 4 mg tablet,disintegrating 4 mg PO Q6H PRN (Reason: nausea and vomiting) Qty: 10 0RF No Action ondansetron 4 mg tablet,disintegrating 4 mg PO Q8H PRN (Reason: nausea and vomiting) Qty: 30 0RF loperamide [Imodium A-D] 2 mg capsule 2 mg PO Q6H PRN (Reason: loose stool) Qty: 20 0RF <Lilly Fenton PA-C - Last Filed: 05/27/25 14:59> Follow-up/Referrals: PHYSICIAN NOT ON STAFF,NONSTAFF [Primary Care Provider] - 1 Week UNKNOWN,DOCTOR [Non-Staff] - <Lilly Fenton PA-C - Last Filed: 05/27/25 14:59>
[2025-05-27] MEDS: SODIUM CHLORIDE 0.9% IV 1,000 ML 999 ML IV CONT (15:32)
[2025-05-27] MEDS: ONDANSETRON INJ 4 MG/2 ML VIAL IV PUSH (15:32)
[2025-05-27 15:45] LABS: Hematocrit 40.7 % (37.0-47.0); Hemoglobin 12.6 g/dL (12.0-15.0); Immature Granulocyte Percent A 0.3 % (0-0.5); Lymphocytes Absolute Auto 1.65 K/mm3 (0.9-3.2); Mean Corpuscular HGB Conc 31.0 g/dl (32-36); Mean Corpuscular Hemoglobin 26.4 pg (26-34); Mean Corpuscular Volume 85.1 fl (80-100); Nucleated Red Blood Cells Absolute Auto 0.000 K/mm3 (0.0-0.012); Nucleated Red Blood Cells Perc 0.0 % (0.0-0.2); Platelet Count Result 244 k/mm3 (150-375); Red Blood Count 4.78 M/mm3 (4.2-5.4); White Blood Count 3.1 K/mm3 (4.5-10.0)
[2025-05-27 15:49] LABS: Alanine Aminotransferase 26 U/L (6-35); Albumin Level 4.6 g/dL (3.5-5.1); Alkaline Phosphatase 79 U/L (38-126); Anion Gap 9 mmol/L (4-12); Aspartate Amino Transferase 30 U/L (14-36); Bilirubin,Total 0.6 mg/dL (0.2-1.3); Blood Urea Nitrogen 17 mg/dL (7-17); Calcium 9.9 mg/dL (8.4-10.2); Carbon Dioxide 26 mmol/L (22-30); Chloride 104 mmol/L (98-107); Estimated CRCL calculation 39 ml/min; Estimated Glomerular Filt Rate 44; Glucose 103 mg/dL (65-110); Lipase 107 U/L (23-300); Potassium 4.7 mmol/L (3.4-5.0); Sodium 139 mmol/L (137-145); Total Protein 8.7 g/dL (6.3-8.2)
[2025-05-27 16:01] LABS: Troponin I < 0.012 ng/mL (0.000-0.034)
--- OUTSIDE RECORDS SUMMARY | 2025-05-27 16:12 | XMS_ITS | Clinical Summary ---
Author Organization [facility] Address [address] [place] [address] Care Team Providers Care Custom Wood Stair Builder Name Role Phone KarmenSheeba lewis Primary Care Provider [phone] Source Comments [facility],non-owned Affiliates and Associated Physician Practices is amultiple site organization consisting of ambulatory clinics and hospital sitesin [place], [place], [place] and [place]. This disclosure is being madepursuant to the Care Everywhere program and may not contain all information available regarding this patient. Last updated 18.[facility] Allergies Active Allergy Reactions Criticality Noted Date [...] approximately 13% higher for people identified as -Pakistani. eGFR by MDRD 61 > OR = [...] 29 U/L [facility] Comment: Test Performed at: [facility] [address] [place] [address] DRISS SEALS DO,MPH Blood BLOOD SPECIMEN / Unknown 06/14/2021 12:18 PM CDT 06/14/2021 12:19 PM CDT Prabhjot Ayoub MD LAB - CHEMISTRY ORDERABLES Sugar l Result [facility] [address] [place] [address] * HIV-1 HIV-2 ANTIBODY + HIV P24 AG PANEL (04/29/2021 12:59 PM CDT) Pathologist [facility] HIV Antigen/Antibod y 1 & 2 Non-reacti ve Non-react zachery 04/29/2021 4:36 PM CDT [facility] Comment:Neither HIV-1 p24 An tigen nor HIV-1/HIV-2 Antibodies are detected. Blood BLOOD SPECIMEN / Unknown Lab Venipuncture / Unknown 04/29/2021 12:59 PM CDT 04/29/2021 1:54 PM CDT Prabhjot Ayoub MD LAB - CHEMISTRY ORDERABLES Sugar l Result Performing Organization Address [facility] Co de Phone Number [address] [address], [facility] [phone] * HEPATITIS C ANTIBODY (04/29/2021 12:59 PM CDT) Hepatitis C Antibody Non-react zachery Non-reac tive 04/29/2021 4:36 PM CDT [facility] Comment:Hepatitis C Antibody screen indicates no [...] ORDERABLES Sugar l Result Performing Organization Address [facility] Co de Phone Number [address] [address], [facility] [phone] from Last 3 Months or Most Recently Relevant to Health Maintenance Insurance [facility] Care Teams Custom Wood Stair Builder Relationship Specialty Start Date End Date Sheeba Bocanegra DO [address] [place] [address] PCP - General 06/10/21
--- OUTSIDE RECORDS SUMMARY | 2025-05-27 16:12 | XMS_ITS | Clinical Summary ---
Author Organization [facility] Address [address] [place] [address] Care Team Providers Care Records Management Clerk Name Role Phone Flor Auguste MD Primary [...] 1 tablet (320 mg total) by mouth cloth painter before breakfast 2 Active rosuvastatin (CRESTOR) 10 mg tabletIndication s:hyperlipidemia Take 1 tablet (10 mg total) by mouth nightly 2 Active spironolactone (ALDACTONE) 25 mg tabletIndication s:Ascites Take 1 tablet (25 mg total) by mouth cloth painter before breakfast 2 Active dapagliflozin (FARXIGA) 5 mg tabletIndication s:type 2 diabetes mellitus Take 1 tablet (5 mg total) by mouth cloth painter before breakfast Active levothyroxine (SYNTHROID) 75 mcg tabletIndication s:hypothyroidism Take 1 tablet (75 mcg total) by mouth cloth painter before breakfast 0 Active FeroSuL 325 mg [...] Tobacco: Never Tobacco Cessation:Counseling Given: Not Answered [facility] Utilities Answer Date Recorded In the past 12 months has [employer] electric, gas, oil, or water [place] threatened to shut off services in your [...] week 07/04/2024 How often do you attend [facility] or worship services? Never 07/04/2024 Do you belong to any clubs o r organizations such as protestant groups, unions, fraternal or athletic groups, or [...] any time in the past 12 m [facility], were you homeless or living in a residential (including now)? No 07/04/2024 Personal Safety Answer Date Recorded Have you ever been in or are you currently in a harmful physical or emotional relationship or is someone making you feel afraid or unsafe? Denies 11/21/2024 Comments No Sex and Gender Information Value Date Recorded Sex Assigned at Not on file Legal Sex Female 6:38 PM ENERGY SPECIALIST Gender Identity Not on file Sexual Orientation Not on file Obstetrics History Last Filed Vital Signs Vital Sign Reading Time Taken Comments Blood Pressure 181/106 11/21/2024 6:06 PM ENERGY SPECIALIST Pulse 76 11/21/2024 6:06 PM ENERGY SPECIALIST Temperature 37.2 C (98.9 F) 11/21/2024 6:06 PM ENERGY SPECIALIST Respiratory Rate 18 11/21/2024 6:06 PM ENERGY SPECIALIST Oxygen Saturation 97% 11/21/2024 6:06 PM ENERGY SPECIALIST Inhaled Oxygen Concentration - - Weight 68 kg (150 lb) 11/21/2024 6:06 PM ENERGY SPECIALIST Height 160 cm (5' 3) 11/21/2024 6:06 PM ENERGY SPECIALIST Body Mass Index 26.57 11/21/2024 6:06 PM ENERGY SPECIALIST Plan of Treatment Health Maintenance Due Date [...] 04/11/2021, 03/21/2021 Influenza Vaccine Completed 10/09/2024 Insurance [facility] Advance Directives For more information, please contact: [phone] * Full Code (Latest Code Status on File) Date Activated Date Inactivated Comments 07/03/2024 12:55 PM 07/04/2024 11:18 PM * Full Code Date Activated Date Inactivated Comments 03/09/2023 3:52 PM 03/10/2023 5:05 PM * Full Code Date Activated Date Inactivated Comments 01/23/2023 12:59 PM 01/24/2023 5:22 AM Care Teams Records Management Clerk Relationship Specialty Start Date End Date Flor Auguste MD [address] [place] [id number] PCP - General Internal Medicine 12/30/20
--- OUTSIDE RECORDS SUMMARY | 2025-05-27 16:12 | XMS_ITS | Referral Summary ---
Author Organization [facility] Address [address] [place] [address] Care Team Providers Care Tea Bag Packer Name Role Phone Flor Auguste MD Primary [...] 1 tablet (320 mg total) by mouth plant director before breakfast 2 Active rosuvastatin (CRESTOR) 10 mg tabletIndication s:hyperlipidemia Take 1 tablet (10 mg total) by mouth nightly 2 Active spironolactone (ALDACTONE) 25 mg tabletIndication s:Ascites Take 1 tablet (25 mg total) by mouth plant director before breakfast 2 Active dapagliflozin (FARXIGA) 5 mg tabletIndication s:type 2 diabetes mellitus Take 1 tablet (5 mg total) by mouth plant director before breakfast Active levothyroxine (SYNTHROID) 75 mcg tabletIndication s:hypothyroidism Take 1 tablet (75 mcg total) by mouth plant director before breakfast 0 Active FeroSuL 325 mg [...] Tobacco: Never Tobacco Cessation:Counseling Given: Not Answered [facility] Utilities Answer Date Recorded In the past 12 months has [employer] electric, gas, oil, or water company threatened [...] often do you attend chur ch or presybeterian services? Never 07/04/2024 Do you belong to any clubs o r organizations such as judaism groups, unions, fraternal or athletic groups, or [...] any time in the past [address] 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 CLERK Gender Identity Not on file Sexual Orientation Not on file Last Filed Vital Signs Vital Sign Reading Time Taken Comments Blood Pressure 181/106 11/21/2024 6:06 PM TRANSIT DEPARTMENT CLERK Pulse 76 11/21/2024 6:06 PM TRANSIT DEPARTMENT CLERK Temperature 37.2 C (98.9 F) 11/21/2024 6:06 PM TRANSIT DEPARTMENT CLERK Respiratory Rate 18 11/21/2024 6:06 PM TRANSIT DEPARTMENT CLERK Oxygen Saturation 97% 11/21/2024 6:06 PM TRANSIT DEPARTMENT CLERK Inhaled Oxygen Concentration - - Weight 68 kg (150 lb) 11/21/2024 6:06 PM TRANSIT DEPARTMENT CLERK Height 160 cm (5' 3) 11/21/2024 6:06 PM TRANSIT DEPARTMENT CLERK Body Mass Index 26.57 11/21/2024 6:06 PM TRANSIT DEPARTMENT CLERK Plan of Treatment Not on file Insurance [facility] Advance Directives For more information, please contact: [phone] * Full Code (Latest Code Status on File) Date Activated Date Inactivated Comments 07/03/2024 12:55 PM 07/04/2024 11:18 PM * Full Code Date Activated Date Inactivated Comments 03/09/2023 3:52 PM 03/10/2023 5:05 PM * Full Code Date Activated Date Inactivated Comments 01/23/2023 12:59 PM 01/24/2023 5:22 AM Care Teams Tea Bag Packer Relationship Specialty [place] [address] [place] [id number] PCP - General Internal Medicine 12/30/20
--- OUTSIDE RECORDS SUMMARY | 2025-05-27 16:12 | XMS_ITS | Encounter Summary ---
Author Organization [facility] Address [address] [place] [address] Care Team Providers Care Instructional Media Services Technician Name Role Phone Sheeba Bocanegra DO Primary Care Provider [phone] Vannesa Mckenzie DO Unavailable [phone] Reason for Visit * Reason Onset Date Comments Appointment 04/22/2021 was unable to le ave a message regarding an appt. on 04/29/[address] Ayoub because pt. was not accepting calls at this time Encounter Details Date Type Department Care Team (Late st Contact Info) Description 04/22/2021 [facility]phone [facility] [address] [place] [address] Maggie Paredes Appointment (was unable to leave [...] on filedocumented in this encounter Care Teams Instructional Media Services Technician Relationship Specialty Start Date End Date Sheeba Bocanegra DO [address] [place] [id number] PCP - General 06/10/21 Vannesa Mckenzie DO [address] OF [facility] [place] [phone] PCP - Attributed-[place] Medicaid [place] 05/22/22 12/06/23 documented as of this encounter
[2025-05-27 16:51] LABS: Add Urine Microscopic? NO; Appearance Urine Clear (Clear); Glucose Urine UA 1+ mg/dL (Negative); Leukocyte Esterase Ur Negative LEU/UL (Negative); Nitrate Urine Negative (Negative); Specific Grav Ur 1.027 (1.001-1.035)
[2025-05-27 16:53] LABS: Influenza A QL RT-PCR Negative (Negative); Influenza B QL RT-PCR Negative (Negative); RSV RNA, RT-PCR Negative (Negative); SARS-CoV-2 RNA PCR Negative (Negative)
== END 2025-05-27 18:03 | disposition home or self-care (01) ==
PROVIDERS: Physician Assistant; Emergency Provider Emergency Medicine
DX: K52.9 Noninfective gastroenteritis and colitis, unspecified (principal); Z20.822 Contact with and (suspected) exposure to COVID-19; I10 Essential (primary) hypertension; M54.17 Radiculopathy, lumbosacral region
CPT/HCPCS: 36415; 71045; 74177; 80053; 81003; 83690; 84484; 85025; 87637; 93005; 96361; 96374; 99284; J2405; J7030; Q9967

== ENCOUNTER 2025-08-03 16:16 | Emergency (ER) | payer OTHER, SELFPAY ==
--- NOTE | ~2025-08-03 | XR_ITS ---
EXAMINATION: XR chest 2V, 08/03/2025 17:28 CDT HISTORY: persistent cough COMPARISON: No comparisons available. Technique: 2 views obtained. Findings: The lungs are clear, no effusion. No pneumothorax. Heart is normal size. Mediastinal and hilar contours are within normal limits. Bony thorax no acute abnormality. Impression: No acute cardiopulmonary abnormality. Reviewed, dictated and finalized at location A. Impression: No acute cardiopulmonary abnormality.
[2025-08-03 16:49] VITALS: BP 107/67; PULSE 71; RESP 18; TEMP 36.4; O2SAT 99
[2025-08-03 17:10] VITALS: O2SAT 98
--- NOTE | 2025-08-03 17:52 | ED_ITS ---
HPI - URI/Sore Throat General Chief Complaint: Upper Respiratory Infection Stated Complaint: uri Time Seen by Provider: 08/03/25 17:04 History of Present Illness HPI Narrative: Patient is a 60-year-old female who presents to the ER with an upper respiratory infection. 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 Patient reports she has been taking [place], cough drops, and nothing is helping her symptoms. She reports her symptoms started on Sunday, 3 days ago. Patient endorses slight wheezing. She reports she has a history of asthma but does not have an inhaler at home. Related Data Allergies Allergy/AdvReac Type Severity Reaction Status Date / Time aspirin AdvReac Intermediate Vomiting Verified 08/03/25 16:54 Review of Systems Review of Systems: All systems reviewed & are unremarkable except as noted in HPI and below PMFSH Past Medical History Medical History Lumbosacral radiculopathy Hypertension Exam Narrative: GENERAL: Ill appearing, well-nourished, non-toxic, in no acute distress. HEAD: Normocephalic, atraumatic. NECK: Supple. No adenopathy, no masses. RESPIRATORY: Airway patent, respirations nonlabored. No wheezing. Diminished lower bases bilaterally. CARDIOVASCULAR: Regular rate and rhythm without murmurs, rubs, or gallops. Peripheral pulses 2+ and equal bilaterally. ABDOMINAL: Soft, nontender, nondistended, no hepatosplenomegaly. Normoactive BS. MUSCULOSKELETAL: Moves all extremities. Strength/ROM intact without gross deformities. SKIN: Warm, dry, normal color. No rashes. NEURO: A&O X3. Speech clear. Cranial nerves II-XII intact. No ataxic movements. PSYCHIATRIC: Appropriate mood and affect. Normal interaction. Course Vital Signs Vital signs: Vital Signs Temperature 36.4 C 08/03/25 16:49 Pulse Rate 71 08/03/25 16:49 Respiratory Rate 18 08/03/25 16:49 Blood Pressure 107/67 08/03/25 16:49 Pulse Oximetry 99 08/03/25 16:49 Oxygen Delivery Room Air 08/03/25 16:49 Temperature 36.4 C 08/03/25 16:49 Pulse Rate 68 08/03/25 20:09 Respiratory Rate 20 08/03/25 20:09 Blood Pressure 121/79 08/03/25 18:03 Pulse Oximetry 100 08/03/25 18:03 Oxygen Delivery Room Air 08/03/25 17:10 MDM - URI/Sore Throat MDM Narrative Medical decision making narrative: Patient is a 60-year-old female who presents to the ER with an upper respiratory infection. 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 Patient reports she has been taking [place], cough drops, and nothing is helping her symptoms. She reports her symptoms started on Sunday, 3 days ago. Patient endorses slight wheezing. She reports she has a history of asthma but does not have an inhaler at home. Labs Ordered: COVID/flu/RSV swab Imaging Ordered: Chest x-ray Medications Ordered: Toradol 30 mg IM, prednisone 40 mg p.o., DuoNeb Results: Patient's chest x-ray indicates No acute cardiopulmonary abnormality. Her respiratory swab was negative for COVID and flu Diagnosis: Upper respiratory infection Patient Education/Shared MDM: Results of lab work and imaging shared with patient. She endorses improvement of symptoms following medication administration. Patient strongly advised to maintain hydration status upon discharge and follow-up with her PCP as soon as possible. She will be discharged home with a prescription for an albuterol inhaler and prednisone. Strict return precautions provided. Patient verbalized understanding and is in agreement with plan. Vital signs stable at time of discharge. All questions answered. Differential Diagnosis Differential diagnosis: Likely upper respiratory infection, viral infection and influenza Lab Data Attestation: I reviewed the patient's lab results. Labs: Lab Results 08/03/25 Range/Units 17:38 Influenza A (RT-PCR) Negative (Negative) Influenza B (RT-PCR) Negative (Negative) RSV (RT-PCR) Negative (Negative) SARS-CoV-2 RNA (RT-PCR) Negative (Negative) Imaging Data Attestation: I personally reviewed and interpreted this imaging study as follows: Radiologist's impression: Impressions Chest X-Ray 08/03/25 17:37 Impression: No acute cardiopulmonary abnormality. Discharge Plan Discharge Clinical Impression: Upper respiratory infection Patient Disposition: Home Condition: Stable Instructions: Antibiotic Form, Upper Respiratory Infection (ED) Additional Instructions: Please return to the ER with any worsening symptoms. Follow-up with primary care provider as needed. You may take steroids, Tylenol, and ibuprofen for pain control. Your albuterol inhaler has been refilled. Patient Language: Azeri Prescriptions: New benzonatate 100 mg capsule 100 mg PO TID Qty: 30 0RF methylprednisolone [Medrol (Mario)] 4 mg tablets,dose pack See Rx Instructions .ROUTE .COMPLEX Qty: 1 0RF Rx Instructions: for 6 days albuterol sulfate 90 mcg/actuation aerosol powdr breath activated 2 inh inhalation QID PRN (Reason: shortness of breath or wheezing) Qty: 1 0RF No Action ondansetron 4 mg tablet,disintegrating 4 mg PO Q8H PRN (Reason: nausea and vomiting) Qty: 30 0RF loperamide [Imodium A-D] 2 mg capsule 2 mg PO Q6H PRN (Reason: loose stool) Qty: 20 0RF dicyclomine 20 mg tablet 20 mg PO QID Qty: 20 0RF ondansetron 4 mg tablet,disintegrating 4 mg PO Q6H PRN (Reason: nausea and vomiting) Qty: 10 0RF Follow-up/Referrals: Kalyani,Demarco Ray [Primary Care Provider] Stand Alone Forms: Work/School Release IP Time of Disposition: 19:48
[2025-08-03 18:03] VITALS: BP 121/79; PULSE 66; RESP 18; O2SAT 100
[2025-08-03 18:23] LABS: Influenza A QL RT-PCR Negative (Negative); Influenza B QL RT-PCR Negative (Negative); RSV RNA, RT-PCR Negative (Negative); SARS-CoV-2 RNA PCR Negative (Negative)
--- OUTSIDE RECORDS SUMMARY | 2025-08-03 18:52 | XMS_ITS | Encounter Summary ---
Author Organization [facility] Address [address] [place] [address] Care Team Providers Care Column Precaster Name Role Phone Sheeba Bocanegra DO Primary Care Provider [phone] Vannesa Mckenzie DO Unavailable [phone] Reason for Visit * Reason Onset Date Comments Appointment 04/22/2021 was unable to le ave a message regarding an appt. on 04/29/[address] Ayoub because pt. was not accepting calls at this time Encounter Details Date Type Department Care Team (Late st Contact Info) Description 04/22/2021 [facility]phone [facility] [address] [place] [address] Maggie Paredes Appointment (was unable to leave [...] on filedocumented in this encounter Care Teams Column Precaster Relationship Specialty Start Date End Date Sheeba Bocanegra DO [address] [place] [id number] PCP - General 06/10/21 Vannesa Mckenzie DO [address] [facility] [place] [phone] PCP - Attributed-[place] [employer] [place] 05/22/22 12/06/23 documented as of this encounter
--- OUTSIDE RECORDS SUMMARY | 2025-08-03 18:52 | XMS_ITS | Clinical Summary ---
Author Organization [facility] Address [address] [place] [address] Care Team Providers Care Steam Bone Press Tender Name Role Phone Sheeba Bocanegra Primary Care Provider [phone] Source Comments [facility],non-owned Affiliates and Associated Physician Practices is amultiple site organization consisting of ambulatory clinics and hospital sitesin [place], [place], [place] and [place]. This disclosure is being madepursuant to the Care Everywhere program and may not contain all information available regarding this patient. Last updated 18.[facility] Allergies Active Allergy Reactions Criticality Noted Date [...] 1963 DTAP/TDAP/TD VACCINES (1 - Tdap) 1982 PNEUMOCOCCAL VACCINE 50+ (1 of 1 - PCV) 2013 ZOSTER VACCINE (1 of 2) 2013 SCREENING FOR DIABETES 06/14/2024 , 06/03/2021 DEPRESSION SCREENING 11/19/2024 COVID-19 VACCINE (1 - 2023-2 5 season) 2025 INFLUENZA VACCINE (#1) 2025 Respiratory Syncytial Virus [...] approximately 13% higher for people identified as -Dutch. eGFR by MDRD 61 > OR = [...] 29 U/L [facility] Comment: Test Performed at: [facility] [id number] [place] [phone] DRISS SEALS DO,MPH Blood BLOOD SPECIMEN / Unknown 06/14/2021 12:18 PM CDT 06/14/2021 12:19 PM CDT us Prabhjot Ayoub MD LAB - CHEMISTRY ORDERABLES Sugar l Result [facility] [id number] [place] [address] * HIV-1 HIV-2 ANTIBODY + HIV P24 AG PANEL (04/29/2021 12:59 PM CDT) Pathologist [facility] HIV Antigen/Antibod y 1 & 2 Non-reacti ve Non-react zachery 04/29/2021 4:36 PM CDT [facility] Comment:Neither HIV-1 p24 An tigen nor HIV-1/HIV-2 Antibodies are detected. Blood BLOOD SPECIMEN / Unknown Lab Venipuncture / Unknown 04/29/2021 12:59 PM CDT 04/29/2021 1:54 PM CDT Prabhjot Ayoub MD LAB - CHEMISTRY ORDERABLES Sugar l Result Performing Organization Address [facility] Co de Phone Number [address] [address], [facility] [phone] * HEPATITIS C ANTIBODY (04/29/2021 12:59 PM CDT) Hepatitis C Antibody Non-react zachery Non-reac tive 04/29/2021 4:36 PM CDT [facility] Comment:Hepatitis C Antibody screen indicates [...] ORDERABLES Sugar l Result Performing Organization Address City/[facility] Co de Phone Number [address] [address], [facility] [phone] from Last 3 Months or Most Recently Relevant to Health Maintenance Insurance [facility] Care Teams Steam Bone Press Tender Relationship Specialty Start Date End Date Sheeba Bocanegra DO [address] [place] [address] PCP - General 06/10/21
--- OUTSIDE RECORDS SUMMARY | 2025-08-03 18:52 | XMS_ITS | Clinical Summary ---
Author Organization [facility] Address [address] [place] [address] Care Team Providers Care Anesthesiology Crna Name Role Phone Flor Auguste MD Primary [...] 1 tablet (320 mg total) by mouth reinforced ironworker before breakfast 2 Active rosuvastatin (CRESTOR) 10 mg tabletIndication s:hyperlipidemia Take 1 tablet (10 mg total) by mouth nightly 2 Active spironolactone (ALDACTONE) 25 mg tabletIndication s:Ascites Take 1 tablet (25 mg total) by mouth reinforced ironworker before breakfast 2 Active dapagliflozin (FARXIGA) 5 mg tabletIndication s:type 2 diabetes mellitus Take 1 tablet (5 mg total) by mouth reinforced ironworker before breakfast Active levothyroxine (SYNTHROID) 75 mcg tabletIndication s:hypothyroidism Take 1 tablet (75 mcg total) by mouth reinforced ironworker before breakfast 0 Active FeroSuL 325 mg [...] Never Tobacco Cessation:Counseling Given: Not Answered [facility] Utilities Answer Date Recorded In the past 12 months has [employer] electric, gas, oil, or water [employer] threatened to shut off services in your home? No 07/04/2024 Social Connection and Isolation Panel Answer Date Recorded In a typical week, how many times do you talk on the phone with family, friends, or neighbors? More than three times a week 07/04/2024 How often do you get togethe r with friends or relatives? Twice a week 07/04/2024 How often do you attend [facility] or religion services? Never 07/04/2024 Do you belong to any clubs o r organizations such as samaritan groups, unions, fraternal or athletic groups, or [...] any time in the past 12 m [facility], were you homeless or living in a senior living (including now)? No 07/04/2024 Personal Safety Answer Date Recorded Have you ever been in or are you currently in a harmful physical or emotional relationship or is someone making you feel afraid or unsafe? Denies 11/21/2024 Comments No Sex and Gender Information Value Date Recorded Sex Assigned at Not on file Legal Sex Female 6:38 PM COUNTY ENGINEER Gender Identity Not on file Sexual Orientation Not on file Obstetrics History Last Filed Vital Signs Vital Sign Reading Time Taken Comments Blood Pressure 181/106 11/21/2024 6:06 PM COUNTY ENGINEER Pulse 76 11/21/2024 6:06 PM COUNTY ENGINEER Temperature 37.2 C (98.9 F) 11/21/2024 6:06 PM COUNTY ENGINEER Respiratory Rate 18 11/21/2024 6:06 PM COUNTY ENGINEER Oxygen Saturation 97% 11/21/2024 6:06 PM COUNTY ENGINEER Inhaled Oxygen Concentration - - Weight 68 kg (150 lb) 11/21/2024 6:06 PM COUNTY ENGINEER Height 160 cm (5' 3) 11/21/2024 6:06 PM COUNTY ENGINEER Body Mass Index 26.57 11/21/2024 6:06 PM COUNTY ENGINEER Plan of Treatment Health Maintenance Due Date Last Done Comments Colon Cancer Screening-Colonoscopy 1965 Depression Screening 1965 Hepatitis C Screening 1963 DTaP/Tdap/Td Vaccine (1 - Tdap) 1974 Hepatitis B Screening 1981 Regular Well Visit/Exam 18-64 1981 Pneumococcal vaccine <65 (1 of 2 - PCV) 1982 Zoster Vaccine (1 of 2) 2013 Breast Cancer Screening-Mammogram 04/03/2024 023 Covid-19 Vaccine ( season) 2025 11/17/2021, 04/11/2021, 03/21/2021 Influenza Vaccine (#1) 2025 10/09/2024 Insurance [facility] Advance Directives For more information, please contact: [phone] * Full Code (Latest Code Status on File) Date Activated Date Inactivated Comments 07/03/2024 12:55 PM 07/04/2024 11:18 PM * Full Code Date Activated Date Inactivated Comments 03/09/2023 3:52 PM 03/10/2023 5:05 PM * Full Code Date Activated Date Inactivated Comments 01/23/2023 12:59 PM 01/24/2023 5:22 AM Care Teams Anesthesiology Crna Relationship Specialty Start Date End Date Flor Auguste MD [address] [place] [id number] PCP - General Internal Medicine 12/30/20
--- OUTSIDE RECORDS SUMMARY | 2025-08-03 18:52 | XMS_ITS | Patient Health Record ---
Author Organization [facility] Address [address] [facility] [facility] [address] [place] [address] Reason For Referral No Information Medications Medication SIG (Take, Route, Frequency, Duration) Notes Start Date End Date Status Ergocalciferol 1.25 MG (90796 UT) 1 capsule Orally Once a week; Duration: 90 day(s) Active Problems Problem Type SNOMED Code ICD Code Onset Dates Problem Status W/U Status Risk Notes Problem Hyperlipidemia (97511716) Hyperlipidemia, unspecified (E78.5) Active confirmed Problem Chronic pain syndrome (146706197) Chronic pain syndrome (G89.4) Active confirmed Problem Essential hypertension (65285730) Essential (primary) hypertension (I10) Active confirmed Problem Atherosclerotic heart disease of [place] coronary artery without angina pectoris (267356655937413) Atherosclerotic heart disease of [place] coronary artery without angina pectoris (I25.10) Active confirmed Problem Heart failure (41504999) Heart failure, unspecified (I50.9) Active confirmed Problem Chronic kidney disease stage 3A (disorder) (382735785) Chronic kidney disease, stage 3a (N18.31) Active confirmed Plan Of Treatment No Information
[2025-08-03 20:00] VITALS: PULSE 64; RESP 20
[2025-08-03] MEDS: IPRATROPIUM 0.5 MG/ALBUTEROL SULFATE 2.5 MG AMPUL.NEB 3 ML INHALATION (20:00)
[2025-08-03 20:09] VITALS: PULSE 68; RESP 20
[2025-08-03] MEDS: KETOROLAC 30 MG/ML VIAL (*BKC) IM (20:53)
== END 2025-08-03 20:50 | disposition home or self-care (01) ==
PROVIDERS: Emergency Provider Registered Nurse; PCP Internal Medicine Infectious Disease
DX: J06.9 Acute upper respiratory infection, unspecified (principal); I10 Essential (primary) hypertension; Z20.822 Contact with and (suspected) exposure to COVID-19
CPT/HCPCS: 71046; 87637; 94640; 96372; 99283; J1885; J7512